=== PATIENT | female | born 1955 | race Caucasian/White ===

== ENCOUNTER 2019-09-14 15:12 | Emergency (ER) | payer OTHER ==
--- OUTSIDE RECORDS SUMMARY | 2019-09-14 15:20 | XMS REPORT | Continuity of Care Document ---
:1955 External Reference #:[id number] Author Name Julian Porter M.D. (transmitted by agent of provider Alcira Brown) Address [address] [place] [id number] Care Team Providers Name Role Phone Patricia Davalos M.D. 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 Onset: 08/19/2019 Social History Type Date Description Comments Sex Unknown Tobacco Use Start: Unknown Never Smoked Cigarettes Smoking Status Reviewed: 08/26/19 Never Smoked Cigarettes ETOH Use Currently consumes 1 drink a day alcohol Tobacco Use Start: Unknown Patient has never smoked Recreational Drug Use Never Used Drugs Exercise Type/Frequency Exercises regularly hiking, dance, weight lifting Allergies, Adverse Reactions, Alerts Description No Known Drug Allergies Medications Active Medications SIG Qnty Indications Ordering Date Provider Mirtazapine one by mouth 60tabs F33.9 Patricia Davalos MD 08/13/2019 7.5mg Tablets daily, at bedtime. may increase to 2 tabs after 2 weeks Levothyroxine Sodium 1 by mouth every 90tabs E03.9 Patricia Davalos MD 2018 other day, 75mcg Tablets alternate with 88mcg dose Premarin 0.5g per vagina 30gm N95.2 Patricia Davalos MD 08/13/2019 0.625mg/GM Cream at bedtime 2x/week Levothyroxine Sodium 1 by mouth every 90tabs Patricia Davalos MD other day to 88mcg Tablets alternate with 75 mcg. Immunizations Description No Information Available Vital Signs Date Vital Result Comment 08/26/2019 9:06am Height 63 inches 5'3" Heart Rate 58 /min BP Systolic 122 mmHg BP Diastolic 84 mmHg Respiratory Rate 12 /min Body Temperature 97.5 F Pain Level 2 08/19/2019 11:33am Height 63 inches 5'3" Weight 132.00 lb Heart Rate 64 /min BP Systolic 98 mmHg BP Diastolic 58 mmHg Respiratory Rate 16 /min Body Temperature 98.0 F Pain Level 0 BMI (Body Mass Index) 23.4 kg/m2 Results Description No Information Available Procedures Date Code Description Status 01/16/2018 [id number] Mammogram Completed Medical Devices Description No Information Available Encounters Type Date Location Provider Dx Diagnosis Office Visit 08/13/2019 [facility] Internal Patricia Davalos MD F33.9 Major depressive 4:00p Medicine - [facility] disorder, recurrent, unspecified M76.72 Peroneal tendinitis, left leg L20.9 Atopic dermatitis, unspecified M25.561 Pain in right knee E03.9 Hypothyroidism, unspecified 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 Assessments Date Code Description Provider 08/26/2019 S92.215A Nondisplaced fracture of cuboid bone of left Julian Porter M.D. foot, initial encounter for closed fracture 08/19/2019 S92.215A Nondisplaced fracture of cuboid bone of left Julian Porter M.D. foot, initial encounter for closed fracture 08/13/2019 F33.9 Major depressive disorder, recurrent, Patricia Davalos MD unspecified 08/13/2019 M76.72 Peroneal tendinitis, left leg Patricia Davalos MD 08/13/2019 L20.9 Atopic dermatitis, unspecified Patricia Davalos MD 08/13/2019 M25.561 Pain in right knee Patricia Davalos MD 08/13/2019 E03.9 Hypothyroidism, unspecified Patricia Davalos MD 08/13/2019 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 Patricia Davalos MD Plan of Treatment Future Appointment(s):09/26/2019 9:00 am - [facility] Julian Porter M.D.S92.215A Nondisplaced fracture of cuboid bone of left foot, initial encounter for closed fractureFollow up:As needed Functional Status Description No Information Available Mental Status Description No Information Available Referrals Refer to Reason for Referral Status Appt Date Julian Porter MD pt with chronic left ankle pain, MRI revealed Sent 08/19 peroneal tendinopathy [address] [place] [phone]
--- OUTSIDE RECORDS SUMMARY | 2019-09-14 15:20 | XMS REPORT | Summary of Care ---
:1955 Author Organization [facility] Address [address] [facility] [place] [address] Care Team Providers Name Role Phone Jacqueline Steve MD Primary Care Provider Reason for Visit Reason Comments Foot Problem c/o left foot pain, outer aspect. Has had fall prior, so unsure of injury. Derm Problem has dry skin, cracking, peeling. Approx 2 months Medication Check discuss Risdronate, effect on fractures. Discuss Synthroid. Follow Up discuss lipid disorder. Encounter Details Date Type Department Care Team Description 07/17/2019 Office Visit [place] [facility] Jacqueline Steve MD Stress fracture of left foot, initial encounter (Primary Dx); Medicine [address] [facility] Lipid disorder; [address] [place] [address] Eczema, unspecified type; [place] [address] Hypothyroidism; [phone] Insomnia, unspecified type Allergies No Known Allergiesdocumented as of this encounter (statuses as of 07/17/2019) Medications Medication Sig Dispensed Refills Start Date End Date Status naproxen (NAPROSYN) Take 1 Tab 20 Tab 0 01/29/2018 Active 500 MG Oral by mouth TabIndications: TWICE Acute bilateral low DAILY. With back pain without food sciatica cyclobenzaprine Take 1 Tab 42 Tab 0 01/29/2018 Active (FLEXERIL) 10 MG by mouth Oral TabIndications: THREE TIMES Acute bilateral low DAILY back pain without NEEDED for sciatica muscle spasm. levothyroxine Take 1 Tab 90 Tab 3 04/15/2019 Active (SYNTHROID) 88 MCG by mouth Oral TabIndications: BEFORE Hypothyroidism, BREAKFAST. unspecified type Risedronate Sodium Take 1 Tab 3 Tab 3 04/15/2019 Active 150 MG Oral by mouth TabIndications: EVERY Osteoporosis, THIRTY unspecified DAYS. osteoporosis type, unspecified pathological fracture presence levothyroxine Take 1 Tab 90 Tab 3 07/17/2019 Active (SYNTHROID) 75 MCG by mouth Oral TabIndications: EVERY OTHER Hypothyroidism DAY. clobetasol (CORMAX) Apply twice 15 g 1 07/17/2019 Active 0.05 % Apply daily externally Ointment clobetasol (CORMAX) Apply twice 15 g 1 07/17/2019 Discontinued 0.05 % Apply daily 9 externally OintmentIndications: Eczema, unspecified type levothyroxine Take 1 Tab 90 Tab 3 07/17/2019 Discontinued (SYNTHROID) 75 MCG by mouth 9 (Reorder) Oral TabIndications: EVERY OTHER Hypothyroidism DAY. documented as of this encounter (statuses as of 07/17/2019) Active Problems Problem Noted Date Lipid disorder 10/25/2018 Overview: LDL not ideal - framingham risk at age 64 is 5.6 % - patient declines lipid treatment at this tme ( no fam history coronary artery disease ) Chronic bilateral low back pain without sciatica 03/14/2017 Tinea versicolor 02/07/2017 Encounter for gynecological examination with abnormal finding 02/07/2017 Osteopenia 09/06/2007 Overview: Dxa 2006 Osteopenia of the spine/ Normal hip Frax data: 10 yr risk for major osteoporotic fracture - 30 %; hip fracture - 3 % (04/02) - Start fosamax - 04/02 - took 1 month and stopped Restart with actonel 03/05 Hypothyroidism 08/21/2007 Overview: Feels better lower in the range 04/02 Dysthymia 02/05/2006 Depression 11/19/2001 Graves disease 11/19/1986 documented as of this encounter (statuses as of 07/17/2019) Immunizations Name Administration Dates Next Due DTAP Vaccine 05/12/2004 Hepatitis A Vaccine-Adult 02/06/2012, 08/11/2011 Influenza (IM) Preservative Free 09/04/2018, 08/25/2014, 10/07/2013, 10/29/2012 Influenza Vaccine Whole 09/16/2009 TDAP Vaccine 02/22/2015 TYPHOID VACCINE 11/07/2016 YELLOW FEVER VACCINE 11/07/2016 ZOSTER (SHINGRIX) VACCINE 01/23/2019 documented as of this encounter Social History Tobacco Use Types Packs/Day Years Used Date Never Smoker Smokeless Tobacco: Never Used Alcohol Use Drinks/Week oz/Week Comments Yes 7 Standard drinks or equivalent 5.8 Sex Assigned at Date Recorded Not on file Job Start Date Occupation Industry Not on file Not on file Not on file Travel History Travel Start Travel End No recent travel history available. documented as of this encounter Last Filed Vital Signs Vital Sign Reading Time Taken Comments Blood Pressure 108/69 07/17/2019 9:12 AM EDT Pulse 68 07/17/2019 9:12 AM EDT Temperature - - Respiratory Rate - - Oxygen Saturation 98% 07/17/2019 9:12 AM EDT Inhaled Oxygen Concentration - - Weight 59.9 kg (132 lb) 07/17/2019 9:12 AM EDT Height 161.3 cm (5' 3.5") 07/17/2019 9:12 AM EDT Body Mass Index 23.02 07/17/2019 9:12 AM EDT documented in this encounter Patient Instructions Patient InstructionsJacqueline Steve MD - 07/17/2019 9:00 AM EDTStress sPatient Education Stress Fracture of the Metatarsal Bone Discharge Instructions About this topic You have 5 metatarsal bones in the middle of your foot. One leads up to each toe. Stress fractures are common injuries to these bones. Muscles most often cushion these bones and act like shock absorbers. When the muscles are tired or overused, some of the shock gets transferred to the bone. Tiny cracks can happen. Most of the time, these will heal. Sometimes, these tiny cracks can grow larger. They may turn into a full break that goes all the way through the bone. The most common places in the foot to have stress fractures are the second and third metatarsals. What care is needed at home? Ask your doctor what you need to do when you go home. Make sure you ask questions if you do notunderstand what the doctor says. This way you will know what you need to do. Rest your foot. Your doctor may have you wear a brace, cast, or walking boot to limit your movement. Avoid any activities that make your pain worse. Place an ice pack or a bag of frozen peas wrapped in a towel over the painful part. Never put ice right on the skin. Do not leave the ice on more than 10 to 15 minutes at a time. Prop your foot on pillows to help with swelling. Lightly wrap the foot with bandages to help lessen swelling. Use arch supports or shoe inserts if your doctor suggests you do this. Use crutches if your doctor suggests you do this. Do gentle exercises for stretching and for strengthening as your doctor or physical therapist suggests. Slowly add to the intensity and amount of exercise you do. What follow-up care is needed? Your doctor may ask you to make visits to the office to check on your progress. Be sure to keep these visits. Your doctor may send you to physical therapy (PT) . The PT will teach you exercises to get back your strength and motion. What drugs may be needed? The doctor may order drugs to: Help with pain and swelling Will physical activity be limited? You may need to rest your foot for a while. You should not do physical activity that makes your health problem worse. If you run, work out, or play sports, you may not be able to do those things until your health problem gets better. What problems could happen? Trouble healing Trouble moving the foot Trouble fitting into shoes Arthritis Chronic pain Foot deformity What can be done to prevent this health problem? Warm up slowly and stretch your muscles before you work out. Use good ways to train, such as slowly adding to how far you run. Do not work out if you are overly tired. Take extra care if working out in cold weather. Always wear proper equipment and footwear when running or playing sports. Replace old shoes often. Wear shoes with good support. Consider wearing arch supports if you have flat feet. If you are a runner, change your shoes after 350 to 500 miles. Avoid walking or running on uneven surfaces or hard surfaces like concrete. Try swimming, biking, or walking instead of running to lessen the impact on your feet. If you like to run, try cross training or alternating running with these other activities on different days. Stay active and work out to keep your muscles strong and flexible. Keep a healthy weight so there is not extra stress on your joints. Eat a healthy diet to keep your muscles healthy. Eat a diet rich in calcium and vitamin D to keep your bones strong. When do I need to call the doctor? Pain is worse You are having more problems walking You are not feeling better in 2 to 3 days or you are feeling worse. Teach Back: Helping You Understand The Teach Back Method helps you understand the information we are giving you. The idea is simple. After talking with the staff, tell them in your own words what you were just told. This helps to make sure the staff has covered each thing clearly. It also helps to explain things that may have been a bit confusing. Before going home, make sure you are able to do these: I can tell you about my fracture. I can tell you how I will care for my injured area. I can tell you what may help ease my pain. I can tell you what I will do if I have more pain or I am having more problems walking. Where can I learn more? [employer] https://orthoinfo.aaos.org/en/diseases--conditions/zfupjv-mwqjebwfu-fq-the-foot- and-ankle Last Reviewed Date 2018-07-18 Consumer Information Use and Disclaimer This information is not specific medical advice and does not replace information you receive from your health care provider. This is only a brief summary of general information. It does NOT include allinformation about conditions, illnesses, injuries, tests, procedures, treatments, therapies, discharge instructions or life-style choices that may apply to you. You must talk with your health care provider for complete information about your health and treatment options. This information should not beused to decide whether or not to accept your health care providers advice, instructions or recommendations. Only your health care provider has the knowledge and training to provide advice that isright for you. Copyright Copyright 2018 [employer] and its affiliates and/or licensors. All rights reserved. 2. Trial of levothyroxine 75 mcg and rediscuss ( treatment or depression appropriate / insomnia ?) 3. Stop actonel while has suspicion of stress fracture 4. Xray forstress fracture - if unrevealing ct scan - 5. Clobetasol ointment For the eczema ( Use occlusion at night ) documented in this encounter Progress Notes Jacqueline Steve MD - 07/17/2019 9:00 AM EDT NAME:Gretchen Grier 1955: 1955 ENC Date: 07/17/2019 CC: Chief Complaint Patient presents with Foot Problem c/o left foot pain, outer aspect. Has had fall prior, so unsure of injury. Derm Problem has dry skin, cracking, peeling. Approx 2 months Medication Check discuss Risdronate, effect on fractures. Discuss Synthroid. Follow Up discuss lipid disorder. Gretchen Grier is a 64-y.o. female with multiple issues 1. 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 Has been on actonel 3 years- Worried about use with question of stress fracture 3. Thyroid - Has insomnia- wonders if related- Has energy- Has been on 88 mcg for some time -TSH has been normal n the low part of the range wondering if on the lower dose will feel better- 4. Lipids revieweed and calculated a framingham risk 4. Eczema - Right 5th finger - reoccuring - Has had in the winter Was prescribed cream by Dr Painting last yr- Current Outpatient Medications Medication Sig clobetasol (CORMAX) 0.05 % Apply externally Ointment Apply twice daily cyclobenzaprine (FLEXERIL) 10 MG Oral Tab Take 1 Tab by mouth THREE TIMES DAILY NEEDED formuscle spasm. levothyroxine (SYNTHROID) 75 MCG Oral Tab Take 1 Tab by mouth EVERY OTHER DAY. levothyroxine (SYNTHROID) 88 MCG Oral Tab Take 1 Tab by mouth BEFORE BREAKFAST. naproxen (NAPROSYN) 500 MG Oral Tab Take 1 Tab by mouth TWICE DAILY. With food Risedronate Sodium 150 MG Oral Tab Take 1 Tab by mouth EVERY THIRTY DAYS. No current facility-administered medications for this visit. Patient Active Problem List Diagnosis Date Noted Lipid disorder 10/25/2018 LDL not ideal - framingham risk at age 64 is 5.6 % - patient declines lipid treatment at this tme ( no fam history coronary artery disease ) Chronic bilateral low back pain without sciatica 03/14/2017 Tinea versicolor 02/07/2017 Encounter for gynecological examination with abnormal finding 02/07/2017 Osteopenia 09/06/2007 Dxa 2006 Osteopenia of the spine/ Normal hip Frax data: 10 yr risk for major osteoporotic fracture - 30 %; hip fracture -3 % (04/02) - Start fosamax - 04/02 - took 1 month and stopped Restart with actonel 03/05 Hypothyroidism 08/21/2007 Feels better lower in the range 04/02 Dysthymia 02/05/2006 Depression 11/19/2001 Graves disease 11/19/1986 Family History Problem Relation Age of Onset Arthritis Mother Cancer Mother lymphoma Cancer Father liver Breast Cancer Maternal Aunt Psychiatry Brother Genetic Child No cardiopulmonary symptoms No upper or lower GI complaints No urinary tract symptoms. No bruising/ bleeding. No neurological complaints . No insomnia.+ . Social History Tobacco Use Smoking status: Never Smoker Smokeless tobacco: Never Used Substance Use Topics Alcohol use: Yes Alcohol/week: 5.8 standard drinks Types: 7 Standard drinks or equivalent per week Drug use: No OBJECTIVE: BP 108/69 | Pulse 68 | Ht 5' 3.5" (1.613 m) | Wt 132 lb (59.9 kg) | LMP 05/2015 | SpO2 98% | BMI 23.02 kg/m . Right 5th finger- Diffuse ecxamea on one finger with cracks Left 5th metatarsus - No bruise- Localized pain laterally - A/P ICD-9-CM ICD-10-CM 1. Stress fracture of left foot, initial encounter- high suspicion - Start with plaini xray - if negative proceed to ct scan 733.95 M84.375A XR FOOT MIN 3 VIEWS LEFT (STANDARD) 2. Lipid disorder- LDL high but framingham risk low - not interested in medication 272.9 E78.9 3. Eczema, unspecified type 692.9 L30.9 clobetasol (CORMAX) 0.05 % Apply externally Ointment 4. Hypothyroidism- adquately treated but wishes to try lwoer dose- 244.9 E03.9 THYROID STIMULATINGHORMONE levothyroxine (SYNTHROID) 75 MCG Oral Tab 5. Insomnia, unspecified type 780.52 G47.00 Patient Instructions Stress sPatient Education Stress Fracture of the Metatarsal Bone Discharge Instructions About this topic You have 5 metatarsal bones in the middle of your foot. One leads up to each toe. Stress fractures are common injuries to these bones. Muscles most often cushion these bones and act like shock absorbers. When the muscles are tired or overused, some of the shock gets transferred to the bone. Tiny cracks can happen. Most of the time, these will heal. Sometimes, these tiny cracks can grow larger. They may turn into a full break that goes all the way through the bone. The most common places in the foot to have stress fractures are the second and third metatarsals. What care is needed at home? Ask your doctor what you need to do when you go home. Make sure you ask questions if you do notunderstand what the doctor says. This way you will know what you need to do. Rest your foot. Your doctor may have you wear a brace, cast, or walking boot to limit your movement. Avoid any activities that make your pain worse. Place an ice pack or a bag of frozen peas wrapped in a towel over the painful part. Never put ice right on the skin. Do not leave the ice on more than 10 to 15 minutes at a time. Prop your foot on pillows to help with swelling. Lightly wrap the foot with bandages to help lessen swelling. Use arch supports or shoe inserts if your doctor suggests you do this. Use crutches if your doctor suggests you do this. Do gentle exercises for stretching and for strengthening as your doctor or physical therapist suggests. Slowly add to the intensity and amount of exercise you do. What follow-up care is needed? Your doctor may ask you to make visits to the office to check on your progress. Be sure to keep these visits. Your doctor may send you to physical therapy (PT) . The PT will teach you exercises to get back your strength and motion. What drugs may be needed? The doctor may order drugs to: Help with pain and swelling Will physical activity be limited? You may need to rest your foot for a while. You should not do physical activity that makes your health problem worse. If you run, work out, or play sports, you may not be able to do those things until your health problem gets better. What problems could happen? Trouble healing Trouble moving the foot Trouble fitting into shoes Arthritis Chronic pain Foot deformity What can be done to prevent this health problem? Warm up slowly and stretch your muscles before you work out. Use good ways to train, such as slowly adding to how far you run. Do not work out if you are overly tired. Take extra care if working out in cold weather. Always wear proper equipment and footwear when running or playing sports. Replace old shoes often. Wear shoes with good support. Consider wearing arch supports if you have flat feet. If you are a runner, change your shoes after 350 to 500 miles. Avoid walking or running on uneven surfaces or hard surfaces like concrete. Try swimming, biking, or walking instead of running to lessen the impact on your feet. If you like to run, try cross training or alternating running with these other activities on different days. Stay active and work out to keep your muscles strong and flexible. Keep a healthy weight so there is not extra stress on your joints. Eat a healthy diet to keep your muscles healthy. Eat a diet rich in calcium and vitamin D to keep your bones strong. When do I need to call the doctor? Pain is worse You are having more problems walking You are not feeling better in 2 to 3 days or you are feeling worse. Teach Back: Helping You Understand The Teach Back Method helps you understand the information we are giving you. The idea is simple. After talking with the staff, tell them in your own words what you were just told. This helps to make sure the staff has covered each thing clearly. It also helps to explain things that may have been a bit confusing. Before going home, make sure you are able to do these: I can tell you about my fracture. I can tell you how I will care for my injured area. I can tell you what may help ease my pain. I can tell you what I will do if I have more pain or I am having more problems walking. Where can I learn more? [employer] https://orthoinfo.aaos.org/en/diseases--conditions/wdtfga-euvfcntbl-bv-the-foot- and-ankle Last Reviewed Date 2018-07-18 Consumer Information Use and Disclaimer This information is not specific medical advice and does not replace information you receive from your health care provider. This is only a brief summary of general information. It does NOT include allinformation about conditions, illnesses, injuries, tests, procedures, treatments, therapies, discharge instructions or life-style choices that may apply to you. You must talk with your health care provider for complete information about your health and treatment options. This information should not beused to decide whether or not to accept your health care providers advice, instructions or recommendations. Only your health care provider has the knowledge and training to provide advice that isright for you. Copyright Copyright 2018 [employer] and its affiliates and/or licensors. All rights reserved. 2. Trial of levothyroxine 75 mcg and rediscuss ( treatment or depression appropriate / insomnia ?) 3. Stop actonel while has suspicion of stress fracture 4. Xray forstress fracture - if unrevealing ct scan - 5. Clobetasol ointment For the eczema ( Use occlusion at night ) AUTHOR: Jacqueline Steve MD 09:53 07/17/2019 documented in this encounter Plan of Treatment Date Type Specialty Care Team Description 08/22/2019 Office Visit Internal Medicine Jacqueline Steve MD [address] [place] [address] [phone] Name Type Priority Associated Diagnoses Date/Time XR FOOT MIN 3 VIEWS Imaging Routine Stress fracture of left 07/17/2019 9: 56 AM EDT LEFT (STANDARD) foot, initial encounter Name Type Priority Associated Diagnoses Order Schedule XR FOOT MIN 3 VIEWS Imaging Routine Stress fracture of left Expected: LEFT (STANDARD) foot, initial encounter 07/17/2019, Expires: 07/16/2020 THYROID STIMULATING Lab Routine Hypothyroidism Expected: HORMONE 07/17/2019 (Approximate), Expires: 01/13/2020 Health Maintenance Due Date Last Done Comments PAP SMEAR 02/07/2018 02/07/2017, 02/07/2017, 02/22/2015, Additional history exists ZOSTER IMMUNIZATION SERIES 03/20/2019 01/23/2019 (2 of 2) INFLUENZA VACCINE (#1) 2019 09/04/2018, 08/14/2018, 08/25/2014, Additional history exists DEPRESSION SCREENING 10/25/2019 10/25/2018 COLONOSCOPY SCREENING 03/25/2020 03/25/2015, 09/28/2009 (Previously completed) LIPID DISORDER SCREENING 10/30/2023 10/30/2018, 12/24/2017, 02/01/2017, Additional history exists HPV IMMUNIZATION SERIES Aged Out No longer eligible based on patient's age to complete this topic MENINGOCOCCAL VACCINE IMM Aged Out No longer eligible based on patient's age to complete this topic PNEUMOCOCCAL 0-64 YRS Aged Out No longer eligible based on patient's age to complete this topic documented as of this encounter Goals Goal Patient Goal Associated Recent Patient-Stated? Author Type Problems Progress Depression Depression No hieu Steve (PHQ-9) MD Jacqueline total score < 5 Note: This is an individualized treatment (depression) goal for Gretchen Grier: Displayed above is your goal for a depression screening (PHQ-9) score that would indicate good control of your depression. Keep a regular sleep schedule Lifestyle No Jacqueline Steve MD Note: This is an individualized lifestyle goal for Gretchen Grier: Please maintain a regular sleep schedule. This may help with some symptoms of depression. Take all prescribed medications as directed Self-management Jacqueline Ramirez MD Note: This is an individualized self-management goal for Gretchen Grier: Please take all prescribed medications as directed. 1. Do not skip doses. If you cannot afford your medications, talk with your doctor. 2. Use a pill reminder system such as a pill box if needed. Your pharmacist can help you with this. 3. Contact your Pharmacy 5 days before your medication runs out. If you cannot take your medications for any reasons, talk with your doctor. 4. Please bring all of your medication bottles and inhalers (or a list of all your medications/inhalers) with you to every visit. Potential barriers to meeting all of your care plan goals will continue to be addressed on an ongoing basis. documented as of this encounter Results Not on filedocumented in this encounter Visit Diagnoses Diagnosis Stress fracture of left foot, initial encounter - Primary Lipid disorder Unspecified disorder of lipoid metabolism Eczema, unspecified type Hypothyroidism Unspecified hypothyroidism Insomnia, unspecified type documented in this encounter Insurance Payer Benefit Plan / Subscriber ID Effective Dates Phone Address Type Group [employer] COMMERCIAL AETNA xxxxxxxxxx Effective for all A[employer] dates Guarantor Name Account Type Relation to Date of Phone Billing Patient Address Gretchen Grier Personal/Family 1955 [address] (Home) [place], [place] [phone] [id number] (Work) documented as of this encounter Advance Directives Type Date Recorded Patient [employer] Explanation Advance Directives 03/29/2015 9:36 AM Health Care Proxy
--- OUTSIDE RECORDS SUMMARY | 2019-09-14 15:20 | XMS REPORT | Continuity of Care Document ---
:1955 External Reference #:[id number] Author Name Julian Porter M.D. (transmitted by agent of provider Dionna Portillo) Address [address] [place] [id number] Care Team Providers Name Role Phone Patricia Davalos M.D. - Family Medicine Care Team Information Chief Nurse Problems Active Problems Provider Date Closed fracture of cuboid bone of foot Julian Porter M.D. Onset: 08/19/2019 Social History Type Date Description Comments Sex Unknown Tobacco Use Start: Unknown Never Smoked Cigarettes Smoking Status Reviewed: 08/19/19 Never Smoked Cigarettes ETOH Use Currently consumes [...] 2x/week Levothyroxine Sodium 1 by mouth every Unknown day 88mcg Tablets Immunizations Description No Information Available Vital Signs Date Vital Result Comment 08/19/2019 11:33am Height 63 inches 5'3" Weight 132.00 lb Heart Rate 64 /min BP Systolic 98 mmHg BP Diastolic 58 mmHg Respiratory Rate 16 /min Body Temperature 98.0 F Pain Level 0 BMI (Body Mass Index) 23.4 kg/m2 08/13/2019 4:08pm Height 63 inches 5'3" Weight 133.00 lb Heart Rate 69 /min BP Systolic Sitting 110 mmHg Rue reg cuff BP Diastolic Sitting 73 mmHg Rue reg cuff O2 % BldC Oximetry 98 % BMI (Body Mass Index) 23.6 kg/m2 Results Description No Information Available Procedures Date Code Description Status 01/16/2018 [id number] Mammogram Completed Medical Devices Description No Information Available Encounters Type Date Location Provider Dx Diagnosis Office Visit 08/13/2019 [facility] [address] Internal Patricia Davalos MD F33.9 Major depressive 4:00p Medicine - [facility] disorder, recurrent, unspecified M76.72 Peroneal tendinitis, left leg L20.9 Atopic dermatitis, unspecified M25.561 Pain in right knee E03.9 Hypothyroidism, unspecified 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 Assessments Date Code Description Provider 08/19/2019 S92.215A Nondisplaced fracture of cuboid bone [...] 9:00 am - Patricia Davalos MD at [facility] [address] Internal Medicine - [facility]08/26/2019 11:30 am - Haley Ramirez MD at [facility] [address] [id number]/01 /2019 - Julian Porter M.D.S92.215A Nondisplaced fracture of cuboid bone of left foot, initial encounter for closed fractureNew Xrays:Dexa Bone Study, Ordered: 10/01/19Follow up:Follow up: After bone density Functional Status Description No Information Available Mental Status Description No Information Available Referrals Refer to Reason for Referral Status Appt Date Julian Porter MD pt with chronic left ankle pain, MRI revealed Sent 08/19 peroneal tendinopathy [address] [place], [place] [id number] [phone]
[2019-09-14 15:58] LABS: Influenza A Molecular NEGATIVE (Negative); Influenza B Molecular NEGATIVE (Negative)
[2019-09-14] MEDS ORDERED: Acetaminophen TAB* 325 MG PO ONE (16:16)
--- NOTE | 2019-09-14 16:56 | UC ---
Respiratory Complaint HPI - HPI Summary HPI Summary: The patient is a 64 yo female that has been ill for 1 1/2 weeks Started as a typical cold Past three days with productive cough/fever and rigors Some RUQ abd pain (mild) no vomiting or diarrhea she has a bitemporal HOSKINS no stiff neck no UTI symptoms no SOB Has been weak and has had three falls in the past few days - History of Current Complaint Chief Complaint: UCGeneralIllness Stated Complaint: DIZZY , WEEKNESS, TIRED Time Seen by Provider: 09/14/19 15:35 Hx Obtained From: Patient Onset/Duration: Gradual Onset, Lasting Days Timing: Constant Severity Initially: Mild Severity Currently: Moderate Pain Intensity: 5 Pain Scale Used: 0-10 Numeric Character: Cough: Productive Aggravating Factors: Nothing Alleviating Factors: Nothing Associated Signs And Symptoms: Positive: Fever, Chills, Nasal Congestion - Allergies/Home Medications Allergies/Adverse Reactions: Allergies Allergy/AdvReac Type Severity Reaction Status Date / Time No Known Allergies Allergy Verified 09/14/19 15:36 Home Medications: Home Medications Conjugated Estrogens VAG CM* [Premarin VAG CREAM*] 1 applic .SEE ORDER DAILY [History Confirmed 09/14/19] Levothyroxine TAB* [Synthroid TAB*] 88 mcg PO 0800 09/14/19 [History Confirmed 09/14/19] Mirtazapine 7.5 mg PO BEDTIME 09/14/19 [History Confirmed 09/14/19] PMH/Surg Hx/FS Hx/Imm Hx Previously Healthy: Yes - Surgical History Surgical History: Yes Surgery Procedure, Year, and Place: c section - Social History Alcohol Use: None Substance Use Type: None Smoking Status (MU): Never Smoked Tobacco Review of Systems All Other Systems Reviewed And Are Negative: Yes Constitutional: Positive: Fever, Chills, Fatigue Skin: Positive: Negative Eyes: Positive: Negative ENT: Positive: Sinus Congestion. Negative: Epistaxis, Dental Pain, Sore Throat , Ear Ache, Nasal Discharge, Sinus Pain/Tenderness Respiratory: Positive: Cough Cardiovascular: Positive: Negative Gastrointestinal: Positive: Abdominal Pain - sl RUQ pain Genitourinary: Positive: Negative Motor: Positive: Negative Neurovascular: Positive: Negative Musculoskeletal: Positive: Myalgia Neurological: Positive: Headache Psychological: Positive: Negative Physical Exam Triage Information Reviewed: Yes Appearance: No Pain Distress, Ill-Appearing Vital Signs: Initial Vital Signs Temp 102.6 F 09/14/19 15:37 Pulse 85 09/14/19 15:37 Resp 18 09/14/19 15:37 BP 115/60 09/14/19 15:37 Pulse Ox 95 09/14/19 15:37 Vital Signs Reviewed: Yes Eyes: Positive: Conjunctiva Clear ENT: Positive: Normal ENT inspection, Pharyngeal erythema, Nasal congestion. Negative: Nasal drainage, Tonsillar swelling, Tonsillar exudate, Trismus, Muffled voice, Hoarse voice Neck: Positive: Supple Respiratory: Positive: Lungs clear, Normal breath sounds, No respiratory distress, No accessory muscle use Cardiovascular: Positive: RRR Abdomen Description: Positive: Nontender, No Organomegaly, Soft Bowel Sounds: Positive: Present Musculoskeletal: Positive: ROM Intact, No Edema Neurological: Positive: Fatigued Psychological Exam: Normal Skin Exam: Normal Diagnostics - Laboratory Lab Results: UA ++ protein, ++ blood influenza (-) - Radiology No standard instances Radiology Interpretation Completed By: Radiologist Summary of Radiographic Findings: CXR -neg Respiratory Course/Dx - Course Course Of Treatment: I have tried to encourage the patient to go to the ER for further evaluation to rule out sepsis/serious infection. I explained our limitations here and suggested EMS transfer She has refused EMS transfer but states she will go by private vehicle I informed her that I felt that this should be done today and any delays could cause serious complications - Differential Dx/Diagnosis Provider Diagnosis: Fever Discharge ED - Sign-Out/Discharge Documenting (check all that apply): Patient Departure All imaging exams completed and their final reports reviewed: No Studies - Discharge Plan Condition: Guarded Disposition: HOME-RECOMMEND TO ED Referrals: Patricia Davalos MD [Primary Care Provider] - Additional Instructions: I suggest you go to the ER for evaluation of your fever You need to be assessed there to make sure you are not septic Sepsis is due to an overwhelming infection and can lead to organ failure and We check a flu test here (-) CXR (-) Your urine did not point to an infection - Billing Disposition and Condition Condition: GUARDED Disposition: Home-Recommend to ED
[2019-09-14 18:16] VITALS: BP 104/49
== END 2019-09-14 17:18 | disposition home health service (06) ==
LOC: UCEAST 15:12
DX: R50.9 Fever, unspecified (principal); R10.11 Right upper quadrant pain; R05 Cough; R09.81 Nasal congestion; R68.83 Chills (without fever); R53.83 Other fatigue; M79.10 Myalgia, unspecified site; R51 Headache
CPT/HCPCS: 71046; 81003; 93005; 99212; A9270-GY; G0463

== ENCOUNTER 2019-09-14 17:26 | Emergency (ER) | payer OTHER ==
[2019-09-14 18:44] LABS: ABS Lymphocytes 0.3 10^3/ul (1.0-4.8); ABS Monocytes 0.2 10^3/ul (0-0.8); ABS Neutrophils 3.1 10^3/ul (1.5-7.7); Hematocrit 36 % (35-47); Hemoglobin 12.5 g/dL (12.0-16.0); Lymphocyte % 9.4 %; Mean Corpuscular HGB Conc 34 g/dL (31-36); Mean Corpuscular Hemoglobin 32 pg (27-31); Mean Corpuscular Volume 94 fL (80-97); Nucleated Red Blood Cells % 0.1; Platelet Count 123 10^3/uL (150-450); Red Blood Count 3.86 10^6 /uL (3.70-4.87); Red Cell Distribution Width 13 % (10-15); White Blood Count 3.6 10^3/uL (3.5-10.8)
[2019-09-14 18:52] LABS: Activated Partial Thrombo Time 33.6 seconds (26.0-38.0); INR 1.08 (0.82-1.09)
[2019-09-14 19:01] LABS: Albumin 3.9 g/dL (3.2-5.2); Albumin/Globulin Ratio 1.3 (1-3); BUN/Creatinine Ratio 15.5 (8-20); Calcium 8.6 mg/dL (8.6-10.3); EGFR African American 56.9 (>60); Potassium 3.7 mmol/L (3.5-5.0); Total Bilirubin 0.4 mg/dL (0.2-1.0); Total Protein 6.9 g/dL (6.4-8.9)
[2019-09-14 19:02] LABS: Troponin I 0.02 ng/mL (<0.04)
--- NOTE | 2019-09-14 23:10 | ED ---
Complex/Multi-Sys Presentation - HPI Summary HPI Summary: Pt is a 64 y/o F presenting to the ED with a chief complaint of multiple symptoms. About 1 week ago, she had a regular cold. The cold symptoms subsided but she now currently feels slow and has developed many other, seemingly unrelated sx. She reports fatigue, fever, highest of 103 at [facility], headache, nausea, decreased oral intake, cough, photophobia, lightheadedness, and a fall this morning. She fell this morning a couple of minutes after getting out of bed and letting the dogs out, and she experienced extreme dizziness yesterday as well. She denies abd pain, vomiting, diarrhea, CP, SOB, tingling, numbness, weakness, slurred speech, and dysuria. She last received Tylenol at 1600 today, and was sent here for bloodwork and further workup. - History Of Current Complaint Chief Complaint: EDAbdPain Time Seen by Provider: 09/14/19 22:52 Hx Obtained From: Patient Onset/Duration: Gradual Onset, Lasting Days, Still Present Timing: Constant, Days Severity Currently: Mild Severity Initially: Mild Location: Negative Associated Signs And Symptoms: Positive: Dizziness, Headache, Nausea, Fever. Negative: SOB, Chest Pain, Vomiting, Diarrhea, Abdominal Pain, Dysuria - Allergies/Home Medications Allergies/Adverse Reactions: Allergies Allergy/AdvReac Type Severity Reaction Status Date / Time No Known Allergies Allergy Verified 09/14/19 15:36 PMH/Surg Hx/FS Hx/Imm Hx Previously Healthy: Yes Endocrine/Hematology History: Reports: Hx Thyroid Disease Musculoskeletal History: Denies: Hx Osteoporosis - Surgical History Surgery Procedure, Year, and Place: c section Infectious Disease History: No Infectious Disease History: Denies: Traveled Outside the [place] in Last 30 Days - Family History Known Family History: Negative: Diabetes - Social History Alcohol Use: None Hx Substance Use: No Substance Use Type: Reports: None Hx Tobacco Use: No Smoking Status (MU): Never Smoked Tobacco Review of Systems - ROS Summary Review of Systems Summary: Home Medications Medication Instructions Recorded Confirmed Type Conjugated Estrogens VAG CM* 1 applic .SEE ORDER DAILY 09/14/19 09/14/19 History [Premarin VAG CREAM*] Levothyroxine TAB* [Synthroid TAB*] 88 mcg PO 0800 09/14/19 09/14/19 History Mirtazapine 7.5 mg PO BEDTIME 09/14/19 09/14/19 History Positive: Fever, Fatigue, Other - decreased oral intake Positive: Photophobia Negative: Chest Pain Positive: Cough. Negative: Shortness Of Breath Positive: Nausea. Negative: Abdominal Pain, Vomiting, Diarrhea Negative: dysuria Neurological: Other - lightheadedness Positive: Headache. Negative: Weakness, Paresthesia, Numbness, Slurred Speech All Other Systems Reviewed And Are Negative: Yes Physical Exam - Summary Physical Exam Summary: General: Well-developed, Well-nourished female. No acute distress. HEENT: Normocephalic, Atraumatic. Eyes: Conjuctiva normal, PERRL. Ears: TMs within normal limits. Nares: (-) discharge, (-) erythema. Oropharynx: Clear, mucous membranes moist, (-) exudates. Neck: Soft, FROM, (-) lymphadenopathy, (-) thyromegaly, (-) JVD. Cardiovascular: Normal sinus rhythm, (-) murmur. Lungs: Clear to auscultation bilaterally (-) wheezes, (-) rales, (-) rhonchi. Abdomen: Soft, non-tender, non-distended, (-) organomegaly, normal bowel sounds. Back: (-) CVA tenderness Extremities: No edema. Skin: Warm, dry, (-) rash. Neuro: Alert and oriented x3, no focal deficits. Psychiatric: Mood normal, affect normal. Triage Information Reviewed: Yes Vital Signs On Initial Exam: Initial Vitals Temp Pulse Resp BP Pulse Ox 99.0 F 82 16 91/57 98 09/14/19 17:46 09/14/19 17:46 09/14/19 17:46 09/14/19 17:46 09/14/19 17:46 Vital Signs Reviewed: Yes Procedures - Sedation Patient Received Moderate/Deep Sedation with Procedure: No Diagnostics - Vital Signs Vital Signs Temp Pulse Resp BP Pulse Ox 09/14/19 22:33 64 100/63 96 09/14/19 19:41 99 F 62 15 91/56 97 09/14/19 17:46 99.0 F 82 16 91/57 98 - Laboratory Lab Results: Lab Results 09/14/19 09/14/19 09/14/19 Range/Units 18:32 18:32 18:32 WBC 3.6 (3.5-10.8) 10^3/uL RBC 3.86 (3.70-4.87) 10^6 /uL Hgb 12.5 (12.0-16.0) g/dL Hct 36 (35-47) % MCV 94 (80-97) fL MCH 32 H (27-31) pg MCHC 34 (31-36) g/dL RDW 13 (10-15) % Plt Count 123 L (150-450) 10^3/uL MPV 9.0 (7.4-10.4) fL Neut % (Auto) 85.1 % Lymph % (Auto) 9.4 % Adams % (Auto) 5.2 % Eos % (Auto) 0.0 % Baso % (Auto) 0.3 % Absolute Neuts (auto) 3.1 (1.5-7.7) 10^3/ul Absolute Lymphs (auto) 0.3 L (1.0-4.8) 10^3/ul Absolute Monos (auto) 0.2 (0-0.8) 10^3/ul Absolute Eos (auto) 0.0 (0-0.6) 10^3/ul Absolute Basos (auto) 0.0 (0-0.2) 10^3/ul Absolute Nucleated RBC 0.0 10^3/ul Nucleated RBC % 0.1 INR (Anticoag Therapy) 1.08 (0.82-1.09) APTT 33.6 (26.0-38.0) seconds Sodium 130 L (135-145) mmol/L Potassium 3.7 (3.5-5.0) mmol/L Chloride 98 L (101-111) mmol/L Carbon Dioxide 23 (22-32) mmol/L Anion Gap 9 (2-11) mmol/L BUN 18 (6-24) mg/dL Creatinine 1.16 H (0.51-0.95) mg/dL Est GFR ( Amer) 56.9 (>60) Est GFR (Non-Af Amer) 47.0 (>60) BUN/Creatinine Ratio 15.5 (8-20) Glucose 121 H (70-100) mg/dL Lactic Acid (0.5-2.0) mmol/L Calcium 8.6 (8.6-10.3) mg/dL Total Bilirubin 0.40 (0.2-1.0) mg/dL AST 42 H (13-39) U/L ALT 37 (7-52) U/L Alkaline Phosphatase 75 (34-104) U/L Troponin I 0.02 (<0.04) ng/mL Total Protein 6.9 (6.4-8.9) g/dL Albumin 3.9 (3.2-5.2) g/dL Globulin 3.0 (2-4) g/dL Albumin/Globulin Ratio 1.3 (1-3) 09/14/19 Range/Units 18:32 WBC (3.5-10.8) 10^3/uL RBC (3.70-4.87) 10^6 /uL Hgb (12.0-16.0) g/dL Hct (35-47) % MCV (80-97) fL MCH (27-31) pg MCHC (31-36) g/dL RDW (10-15) % Plt Count (150-450) 10^3/uL MPV (7.4-10.4) fL Neut % (Auto) % Lymph % (Auto) % Adams % (Auto) % Eos % (Auto) % Baso % (Auto) % Absolute Neuts (auto) (1.5-7.7) 10^3/ul Absolute Lymphs (auto) (1.0-4.8) 10^3/ul Absolute Monos (auto) (0-0.8) 10^3/ul Absolute Eos (auto) (0-0.6) 10^3/ul Absolute Basos (auto) (0-0.2) 10^3/ul Absolute Nucleated RBC 10^3/ul Nucleated RBC % INR (Anticoag Therapy) (0.82-1.09) APTT (26.0-38.0) seconds Sodium (135-145) mmol/L Potassium (3.5-5.0) mmol/L Chloride (101-111) mmol/L Carbon Dioxide (22-32) mmol/L Anion Gap (2-11) mmol/L BUN (6-24) mg/dL Creatinine (0.51-0.95) mg/dL Est GFR ( Amer) (>60) Est GFR (Non-Af Amer) (>60) BUN/Creatinine Ratio (8-20) Glucose (70-100) mg/dL Lactic Acid 0.5 (0.5-2.0) mmol/L Calcium (8.6-10.3) mg/dL Total Bilirubin (0.2-1.0) mg/dL AST (13-39) U/L ALT (7-52) U/L Alkaline Phosphatase (34-104) U/L Troponin I (<0.04) ng/mL Total Protein (6.4-8.9) g/dL Albumin (3.2-5.2) g/dL Globulin (2-4) g/dL Albumin/Globulin Ratio (1-3) Result Diagrams: 09/14/19 18:32 09/14/19 18:32 Lab Statement: Any lab studies that have been ordered have been reviewed, and results considered in the medical decision making process. Re-Evaluation - Re-Evaluation 1st re-eval Re-Evaluation Time: 00:18 Change: Unchanged Comment: I have discussed results with the patient and her sx have resolved. Discussed symptoms that warrant immediate return to ED. Complex Multi-Symp Course/Dx Course Of Treatment: Pt is a 64 y/o F presenting to the ED with a chief complaint of multiple symptoms. She reports fatigue, fever, highest of 103 at [facility], headache, nausea, decreased oral intake, cough, photophobia, lightheadedness, and a fall this morning. She fell this morning a couple of minutes after getting out of bed and letting the dogs out, and she experienced extreme dizziness yesterday as well. She denies abd pain, vomiting, diarrhea, CP , SOB, tingling, numbness, weakness, slurred speech, and dysuria. Pt's physical exam is nml. Pts lab results show plt count of 123, Sodium of 130, Chloride of 98, Creatinine of 1.16, and AST of 42. In the ED course, pt received fluids and Reglan. Pt will be d/c'ed with a dx of influenza-like illness. I have discussed results with the patient and her sx have resolved. Discussed symptoms that warrant immediate return to ED. - Diagnoses Provider Diagnoses: Influenza-like illness Discharge ED - Sign-Out/Discharge Documenting (check all that apply): Patient Departure - Discharge Plan Condition: Stable Disposition: HOME Patient Education Materials: Viral Syndrome (ED) Referrals: Patricia Davalos MD [Primary Care Provider] - Additional Instructions: Please follow up with your primary care physician within three days. Please return to ED for any new or worsening symptoms. Please drink plenty of fluids, take Tylenol and Ibuprofen for your fever/pain, and rest as much as possible. - Attestation Statements Document Initiated by Scribe: Yes Documenting Scribe: Zarina Santacruz Provider For Whom Scribe is Documenting (Include Credential): Lolis Acevedo MD. Scribe Attestation: Zarina Santiago, scribed for Lolis Acevedo MD. on 09/15/19 at 0017. Status of Scribe Document: Ready
[2019-09-14] MEDS ORDERED: NS 0.9% 1000 ML** 1,000 ML IV ONE (23:30)
[2019-09-14] MEDS ORDERED: Metoclopramide IV* 5 MG/ML 2 ML VIAL IV ONE (23:31)
[2019-09-15 00:06] LABS: TSH (Thyroid Stimulating Horm) 0.45 mcIU/mL (0.34-5.60)
[2019-09-15 00:43] VITALS: BP 104/64
== END 2019-09-15 00:49 | disposition home or self-care (01) ==
LOC: ED 17:26
DX: R53.83 Other fatigue (principal); R50.9 Fever, unspecified; R51 Headache; R11.0 Nausea; R05 Cough; H53.149 Visual discomfort, unspecified; R42 Dizziness and giddiness; E07.9 Disorder of thyroid, unspecified
CPT/HCPCS: 36415; 80053; 83605; 84443; 84484; 85025; 85610; 85730; 87040; 96361; 96374; 99283; J2765

== ENCOUNTER 2019-09-18 15:52 | Inpatient (IN) | payer OTHER ==
--- OUTSIDE RECORDS SUMMARY | 2019-09-18 16:09 | XMS REPORT | Continuity of Care Document ---
:1955 External Reference #:[id number] Author Name RAQUEL Marshall (transmitted by agent of provider Jody Allan) Address [address] [place] [id number] Care Team Providers Name Role Phone Patricia Davalos M.D. - Family Medicine Care Team Information Sql Bi Developer Problems Active Problems Provider Date Closed fracture of cuboid bone of foot Julian Porter M.D. Onset: 08/19/2019 Social History Type Date Description Comments Sex Unknown Tobacco Use Start: Unknown Never Smoked Cigarettes Smoking Status Reviewed: 09/17/19 Never Smoked Cigarettes ETOH Use Currently consumes [...] increase to 2 tabs after 2 weeks Premarin 0.5g per vagina 30gm N95.2 Patricia Davalos MD 08/13/2019 0.625mg/GM Cream at bedtime 2x/week Levothyroxine Sodium 1 by mouth every 90tabs Patricia Davalos MD other day to 88mcg Tablets alternate with 75 mcg. History Medications Levothyroxine Sodium 1 by mouth every 90tabs E03.9 Patricia Davalos MD 2018 - other day, 09/17/2019 75mcg Tablets alternate with 88mcg dose Immunizations Description No Information Available Vital Signs Date Vital Result Comment 09/17/2019 1:59pm Height 63 inches 5'3" Weight 135.00 lb Heart Rate 76 /min BP Systolic Sitting 85 mmHg BP Diastolic Sitting 68 mmHg Body Temperature 100.1 F BMI (Body Mass Index) 23.9 kg/m2 08/26/2019 9:06am Height 63 inches 5'3" Heart Rate 58 /min BP Systolic 122 mmHg BP Diastolic 84 mmHg Respiratory Rate 12 /min Body Temperature 97.5 F Pain Level 2 Results Test Acquired Date Facility Test Result H/L Range Note CBC Auto 09/14/2019 [facility] White Blood 3.6 10^3/uL Normal 3.5-10.[address] [place] [address] [phone] Red Blood Count 3.86 10^6/uL Normal 3.70-4.87 Hemoglobin 12.5 g/dL Normal 12.0-16.0 Hematocrit 36 % Normal 35-47 Mean Corpuscular Volume 94 fL Normal 80-97 Mean Corpuscular Hemoglobin 32 pg High 27-31 Mean Corpuscular HGB Conc 34 g/dL Normal 31-36 Red Cell Distribution Width 13 % Normal 10-15 Platelet Count 123 10^3/uL Low 150-450 Mean Platelet Volume 9.0 fL Normal 7.4-10.4 Abs Neutrophils 3.1 10^3/uL Normal 1.5-7.7 Abs Lymphocytes 0.3 10^3/uL Low 1.0-4.8 Abs Monocytes 0.2 10^3/uL Normal 0-0.8 Abs Eosinophils 0.0 10^3/uL Normal 0-0.6 Abs Basophils 0.0 10^3/uL Normal 0-0.2 Abs Nucleated RBC 0.0 10^3/uL Granulocyte % 85.1 % Lymphocyte % 9.4 % Monocyte % 5.2 % Eosinophil % 0.0 % Basophil % 0.3 % Nucleated Red Blood Cells % 0.1 Comp Metabolic Panel 09/14/2019 [facility] Sodium 130 mmol/L Low 135-[address] [place] [address] [phone] Potassium 3.7 mmol/L Normal 3.5-5.0 Chloride 98 mmol/L Low 101-111 Co2 Carbon Dioxide 23 mmol/L Normal 22-32 Anion Gap 9 mmol/L Normal 2-11 Glucose 121 mg/dL High 70-100 Blood Urea Nitrogen 18 mg/dL Normal 6-24 Creatinine 1.16 mg/dL High 0.51-0.95 BUN/Creatinine Ratio 15.5 Normal 8-20 Calcium 8.6 mg/dL Normal 8.6-10.3 Total Protein 6.9 g/dL Normal 6.4-8.9 Albumin 3.9 g/dL Normal 3.2-5.2 Globulin 3.0 g/dL Normal 2-4 Albumin/Globulin Ratio 1.3 Normal 1-3 Total Bilirubin 0.40 mg/dL Normal 0.2-1.0 Alkaline Phosphatase 75 U/L Normal 34-104 Alt 37 U/L Normal 7-52 Ast 42 U/L High 13-39 Egfr Non- 47.0 >60 Egfr 56.9 >60 1 Laboratory 09/14/2019 [facility] Troponin-I 0.02 ng/mL <0.04 2 test finding [address] (TnI) [place] [address] [phone] Inr/Protime 09/14/2019 [facility] Inr 1.08 Normal 0.82-1.[address] [place] [address] [phone] Laboratory 09/14/2019 [facility] Partial 33.6 Normal 26.0-38. test finding [address] Thrombo Time seconds 0 [place] [address] PTT [phone] Lactic Acid 0.5 mmol/L Normal 0.5-2.0 4 TSH (Thyroid Stim Horm) 0.45 mcIU/mL Normal 0.34-5.60 Blood Culture SEE RESULT BELOW 5 Poc Urinalysis 09/14/2019 [facility] Poc Glucose, Negative Negative [address] [place] [address] [phone] Poc Bilirubin, Urine 1+ Abnormal Negative Poc Ketone, Urine 1+ Abnormal Negative Poc Specific [place], Urine 1.020 Normal 1.010-1.030 Poc Blood, Urine 2+ Abnormal Negative Poc pH, Urine 6.5 Normal 5-9 Poc Protein, Urine 2+ Abnormal Negative Poc Urobilinogen, Urine 0.2 Negative Poc Nitrite, Urine Negative Negative Poc Leukocytes, Urine Negative Negative Poc Color, Urine Dark yellow Poc Clarity, Urine Clear 6 Rapid Influenza 09/14/2019 [facility] Influenza A NEGATIVE Negative 7 A & B Molecular [address] Molecular [place], [place] [id number] [phone] Influenza B Molecular NEGATIVE Negative 1 Because ethnic data is not always readily available, this report includes an eGFR for both -Americans and non- Americans. The National Kidney Disease Education Program (NKDEP) does not endorse the use of the MDRD equation for patients that are not between the ages of 18 and 70, are , have extremes of body size, muscle mass, or nutritional status, or are non- or non-. According to the National Kidney Foundation, irrespective of diagnosis, the stage of the disease is based on the level of kidney function: Stage Description GFR(mL/min/1.73 m(2)) 1 Kidney damage with normal or decreased GFR 90 2 Kidney damage with mild decrease in GFR 60-89 3 Moderate decrease in GFR 30-59 4 Severe decrease in GFR 15-29 5 Kidney failure <15 (or dialysis) 2 Troponin-I testing on Plasma Separator Tubes (PST) has a known false positive rate of 0.20-0.40%. All positive troponins reflex immediately to secondary confirmatory testing. Using the Sistemic DxI 800 Access Immunoassay systems, the 99th percentile upper reference limit was demonstrated to be < 0.03 ng/mL. 3 Standard intensity warfarin therapeutic range: 2.0-3.0 High intensity warfarin therapeutic range: 2.5-3.5 4 [facility] Severe Sepsis and Septic Shock Management Bundle Measure requires all lactic acids initially measuring >2.0 mmol/L be repeated. 5 SEE RESULT BELOW Name: GRETCHEN ORTEGA : [address]: Lolis Acevedo MD Acct: [id number] Unit: [id number] AGE: 64 Location: ED Re09/14/19 SEX: F Status: DEP ER SPEC: [id number] JASPER: 09/14/19 [facility] DR: Jorge SPENCE REQ: [id number] RECD: 09/14/19 STATUS: RES OTHR DR: [facility] Patricia Davalos MD _ SOURCE: BLOOD,VENO SPDES: ORDERED: Blood Cult Procedure Result Reported Site Aerobic Culture Bottle Preliminary 09/16/191839 ML No Growth Day 2 Anaerobic Culture Bottle Preliminary 09/16/191839 ML No Growth Day 2 * ML - Main Lab . END OF REPORT DEPARTMENT OF PATHOLOGY, [address] [place] [address] Carrillo Osorio M.D. Director [facility] # [id number] 6 Reading Interventionist: [id number] 7 Reading Interventionist: [id number] Procedures Date Code Description Status 01/16/2018 [id number] Mammogram Completed Medical Devices Description No Information Available Encounters Type Date Location Provider Dx Diagnosis Office Visit 08/26/2019 [facility] Julian Porter, S92.215A Nondisp fx of 8:45a at [facility] Sandoval cuboid bone of left foot, init for clos fx Office Visit 08/26/2019 [facility] Dermatology Haley Ramirez, L92.0 Granuloma 11:30a MD del cid L20.84 Intrinsic (allergic) eczema D22.5 Melanocytic nevi of trunk L82.1 Other seborrheic keratosis Office Visit 08/19/2019 11:00a [facility] Julian S92.215A Nondisp fx of at [facility] Porter M.D. cuboid bone of left foot, init for clos fx M17.11 Unilateral primary osteoarthritis, right knee Office Visit 08/13/2019 4:00p [facility] Internal Patricia Davalos, F33.9 [facility], unspecified M76.72 Peroneal tendinitis, left leg L20.9 Atopic dermatitis, unspecified M25.561 Pain in right knee E03.9 Hypothyroidism, unspecified 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 Assessments Date Code Description Provider 09/17/2019 R50.9 Fever, unspecified Zsofia Ron, HEALTH INFORMATION SPECIALIST 09/17/2019 A08.39 Other viral enteritis Reena Velasquez, HEALTH INFORMATION SPECIALIST 09/17/2019 F33.9 Major depressive disorder, recurrent, Zsofia Ron, HEALTH INFORMATION SPECIALIST unspecified 09/17/2019 N39.0 Urinary tract infection, site not specified Juaniofikamila Velasquez, HEALTH INFORMATION SPECIALIST 09/17/2019 R74.8 Abnormal levels of other serum enzymes Reena Velasquez, HEALTH INFORMATION SPECIALIST 08/26/2019 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 foot, initial encounter for closed fracture 08/19/2019 S92.215A Nondisplaced fracture of cuboid bone of left Julian Porter M.D. foot, initial encounter for closed fracture 08/19/2019 M17.11 Unilateral primary osteoarthritis, right Julian Porter M.D. knee 08/13/2019 F33.9 Major depressive disorder, recurrent, Patricia Davalos MD unspecified 08/13/2019 M76.72 Peroneal tendinitis, left leg Patricia Davalos MD 08/13/2019 L20.9 Atopic dermatitis, unspecified Patricia Davalos MD 08/13/2019 M25.561 Pain in right knee Patricia Davalos MD 08/13/2019 E03.9 Hypothyroidism, unspecified Patricia Davalos MD 08/13/2019 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 Patricia Davalos MD Plan of Treatment Future Appointment(s):09/25/2019 1:00 pm - Antonia Mauro M.D. at [facility] Internal Medicine - [facility]08/27/2020 9:30 am - Haley Ramirez MD at [facility] Sorndtaldkx99/30/2019 - Reena Velasquez, FNPR50.9 Fever, unspecifiedComments:You may take Tylenol as needed but if you can rest well and keep hydrated and the fever is < 102,you do not have to lower itA08.39 Other viral orqqaotlyF42.9 Major depressive disorder, recurrent, unspecifiedComments:May decrease the mirtazapine to 1/2 tab for nowN39.0 Urinary tract infection, site not ekqkaxmnoX67.8 Abnormal levels of other serum enzymes Functional Status Description No Information Available Mental Status Description No Information Available Referrals Refer to Reason for Referral Status Appt Date Julian Porter MD pt with chronic left ankle pain, MRI revealed Sent 08/19 peroneal tendinopathy [address] [facility] [place] [address] [phone]
[2019-09-18] MEDS ORDERED: Cefepime(*) 2 GM in NS 0.9% 50 ML* 50 ML IVPB ONE (18:00)
[2019-09-18] MEDS ORDERED: NS 0.9% 1000 ML** 1,000 ML IV ONE (18:01)
--- NOTE | 2019-09-18 18:16 | ED ---
HPI Febrile Illness - HPI Summary HPI Summary: Patient is a 64 y/o F presenting to the ED for a chief complaint of generalized weakness and fever. Patient is present with her . Patient went to Urgent Care and had labs drawn on 09/14/19. Patient was previously seen at Internal Medicine and was found to have low neutrophils and low platelets. Patient reports fever, chills, cough, diaphoresis at night, and decreased appetite. Patient had constipation one day ago and had a bowel movement with blood and mucous in the stool. Patient states that on 09/13/19 and 09/14/19, she fell twice after feeling a tightness in her core. Patient denies nausea, vomiting, diarrhea, dysuria, or hematuria. Patient took a 10 minute walk today without problems or complaints. Patient had a colonoscopy 4 years ago with a finding of benign polyps. Pt has a PMHx of hypothyroidism. Patient admits rare alcohol use , but denies drug or tobacco use. Patient takes levothyroxine and started mirtazapine one month ago. Allergies noted. Medications reviewed. - History of Current Complaint Chief Complaint: EDGeneral Time Seen by Provider: 09/18/19 17:34 Hx Obtained From: Patient Onset/Duration: Atraumatic, Still Present Timing: Constant Initial Severity: Mild Current Severity: Mild Pain Intensity: 1 Pain Scale Used: 0-10 Numeric Aggravating Factors: Nothing Alleviating Factors: Nothing Associated Signs and Symptoms: Chills, Cough, Diaphoresis - At night, Night Sweats, Weakness - Generalized, Other: - Positive decreased appetite - Allergy/Home Medications Allergies/Adverse Reactions: Allergies Allergy/AdvReac Type Severity Reaction Status Date / Time No Known Allergies Allergy Verified 09/14/19 15:36 Home Medications: Home Medications Mirtazapine TAB* [Remeron TAB*] 7.5 mg PO BEDTIME 09/18/19 [History Confirmed ] Risedronate Sodium 150 mg PO MONTHLY 09/18/19 [History Confirmed 09/18/19] Tacrolimus 0.1% OINT (NF) 1 applic TOPICAL BID PRN 09/18/19 [History Confirmed 09/18/19] PMH/Surg Hx/FS Hx/Imm Hx Previously Healthy: Yes Endocrine/Hematology History: Reports: Hx Thyroid Disease Musculoskeletal History: Denies: Hx Osteoporosis Sensory History: Denies: Hx Legally Blind, Hx Deafness Opthamlomology History: Denies: Hx Legally Blind EENT History: Denies: Hx Deafness - Surgical History Surgical History: Yes Surgery Procedure, Year, and Place: c section - Immunization History Immunizations Up to Date: Yes Infectious Disease History: No Infectious Disease History: Denies: Traveled Outside the [place] in Last 30 Days - Family History Known Family History: Negative: Diabetes - Social History Occupation: Retired Lives: With Family Alcohol Use: Rare Hx Substance Use: No Substance Use Type: Reports: None Hx Tobacco Use: No Smoking Status (MU): Never Smoked Tobacco Review of Systems Positive: Fever, Chills, Skin Diaphoresis - Night sweats, Other - Positive decreased appetite Positive: Cough Positive: Other - Positive constipation with a bowel movement with blood and mucous.. Negative: Vomiting, Diarrhea, Nausea Negative: dysuria, hematuria Positive: Other - Positive "tightness in her core." All Other Systems Reviewed And Are Negative: Yes Physical Exam - Summary Physical Exam Summary: Constitutional: Well-developed, Well-nourished, Alert. (-) Distressed Skin: Warm, Dry HENT: Normocephalic; Atraumatic Eyes: Conjunctiva normal Neck: Musculoskeletal ROM normal neck. (-) JVD, (-) Stridor, (-) Tracheal deviation Cardio: Rhythm regular, rate normal, Heart sounds normal; Intact distal pulses; Radial pulses are 2+ and symmetric. (-) Murmur Pulmonary/Chest wall: Effort normal. (-) Respiratory distress, (-) Wheezes, (-) Rales Abd: Soft, (-) tenderness, (-) Distension, (-) Guarding, (-) Rebound Musculoskeletal: (-) Edema Lymph: (-) Cervical adenopathy Neuro: Alert, Oriented x3 Psych: Mood and affect Normal Triage Information Reviewed: Yes Vital Signs On Initial Exam: Initial Vitals Temp Pulse Resp BP Pulse Ox 99.9 F 76 18 104/70 100 09/18/19 15:53 09/18/19 15:53 09/18/19 15:53 09/18/19 15:53 09/18/19 15:53 Vital Signs Reviewed: Yes Procedures - Sedation Patient Received Moderate/Deep Sedation with Procedure: No Diagnostics - Vital Signs Vital Signs Temp Pulse Resp BP Pulse Ox 09/18/19 18:09 101.5 F 09/18/19 15:53 99.9 F 76 18 104/70 100 - Laboratory Result Diagrams: 09/18/19 18:48 09/18/19 18:48 Lab Statement: Any lab studies that have been ordered have been reviewed, and results considered in the medical decision making process. Course/Dx - Course Course Of Treatment: Patient is here with one week of viral type symptoms with neutropenia diagnosed as an outpatient. Patient was febrile upon arrival so a sepsis workup was initiated with cefepime given empirically. Hematology was called and they think we should treat patient is neutropenic fever even though her jaw today showed adequate neutrophils. Patient is admitted to the hospitalist - Diagnoses Provider Diagnoses: Neutropenia with fever - Provider Notifications Discussed Care Of Patient With: Jorge Schreiber Time Discussed With Above Provider: 19:06 - At 19:06, Dr. Jorge Schreiber agrees to admit the patient to [facility] with a diagnosis of neutropenia with fever. At 19:22 , Dr. Koehler accepts the patient. Instructed by Provider To: Admit As Inpatient Discharge ED - Sign-Out/Discharge Documenting (check all that apply): Patient Departure - Admit - Discharge Plan Condition: Stable Disposition: ADMITTED TO [facility] Referrals: Patricia Davalos MD [Primary Care Provider] - - Billing Disposition and Condition Condition: STABLE Disposition: Admitted to [facility] - Attestation Statements Document Initiated by Jose M: Yes Documenting Giftyibe: Emeli Zhou Provider For Whom Jose M is Documenting (Include Credential): Shiva Corcoran MD Scribe Attestation: Emeli Santiago, scribed for Shiva Corcoran MD on 09/18/19 at 2046. Scribe Documentation Reviewed: Yes Provider Attestation: The documentation as recorded by the Emeli calhoun accurately reflects the service I personally performed and the decisions made by me, Shiva Corcoran MD Status of Scribe Document: Viewed
[2019-09-18 18:58] LABS: ABS Lymphocytes 0.9 10^3/ul (1.0-4.8); ABS Monocytes 0.2 10^3/ul (0-0.8); ABS Neutrophils 1.9 10^3/ul (1.5-7.7); Eosinophil % 0.1 %; Hematocrit 32 % (35-47); Hemoglobin 11.1 g/dL (12.0-16.0); Lymphocyte % 29.2 %; Mean Corpuscular HGB Conc 35 g/dL (31-36); Mean Corpuscular Hemoglobin 32 pg (27-31); Mean Corpuscular Volume 92 fL (80-97); Mean Platelet Volume 10.7 fL (7.4-10.4); Platelet Count 58 10^3/uL (150-450); Red Blood Count 3.46 10^6 /uL (3.70-4.87); Red Cell Distribution Width 14 % (10-15)
[2019-09-18 19:14] LABS: Troponin I 0.01 ng/mL (<0.04)
[2019-09-18] MEDS ORDERED: Acetaminophen TAB* 325 MG PO ONE (19:27)
[2019-09-18 19:28] LABS: Urine Appearance Clear; Urine Bacteria 1+ (Absent); Urine Bilirubin Negative (Negative); Urine Blood 2+ (Negative); Urine Color Yellow; Urine Glucose Negative (Negative); Urine Ketones Negative (Negative); Urine Nitrite Negative (Negative); Urine Protein Negative (Negative); Urine Red Blood Cell 1+(3-5/hpf) (Absent); Urine Specific Gravity 1.004 (1.010-1.030); Urine Urobilinogen Negative (Negative); Urine White Blood Cell Trace(0-5/hpf) (Absent)
[2019-09-18] MEDS ORDERED: Cefepime* 2 GM in Dextrose 50mL (Duplex) IV ONE (19:30)
[2019-09-18 19:35] LABS: Albumin 3.5 g/dL (3.2-5.2); Albumin/Globulin Ratio 1.2 (1-3); BUN/Creatinine Ratio 10.9 (8-20); Calcium 8.4 mg/dL (8.6-10.3); EGFR African American 74.4 (>60); EGFR Non-African American 61.5 (>60); Globulin 2.9 g/dL (2-4); Potassium 3.6 mmol/L (3.5-5.0); Total Bilirubin 0.5 mg/dL (0.2-1.0); Total Protein 6.4 g/dL (6.4-8.9)
[2019-09-18] MEDS ORDERED: Acetaminophen ADULT LIQ* 650 MG/20.3 ML UDC PO PRN (21:50)
--- NOTE | 2019-09-18 23:08 | HP ---
CC: Dr. Patricia Davalos; Dr. Jorge Schreiber ADMISSION HISTORY AND PHYSICAL: DATE OF ADMISSION: 09/18/19 PRIMARY CARE PHYSICIAN: Dr. Patricia Davalos. CHIEF COMPLAINT: Fever and neutropenia. HISTORY OF PRESENT ILLNESS: This is a 64-year-old female with past medical history of hypothyroidism ; dysthymia, recently started on mirtazapine about a month ago; eczema, recently discharged on tacrol imus about a month ago; osteoporosis; here due to abnormal blood test. The patient stated that she h as been having 2 weeks of cold, cough with bouts of coughing spells, and intermittent fever as high a s 103 degrees. She has been seen in [facility] once within the last 4 days along with trip to [facility] ER on 09/14/19, was not given any antibiotics and was subsequently discharged home with some viral syndrome and felt very weak on Sunday and Sunday with fevers as high as 103 as mentioned with head ache. No appetite as everything tastes bland, intermittent sweating especially on Sunday and Sunday , followed up with her nurse practitioner with blood tests that were done this morning, and post bloo d test results, she was recommended to go to the ER as her neutrophil count was very low along with h er platelets which were also very low. She denies any other chest pain. She states that her cough i s productive of clear sputum. No real shortness of breath. No abdominal pain, has some nausea, but no vomiting. Previously had some diarrhea, which has resolved. She did have an episode of fall and f eeling extremely dizzy yesterday. No other symptoms of slurred speech, any urinary burning sensation or pain with urination, any other numbness, tingling, or weakness and no vision disturbance. The orion zimmer does state that she does like to go on walks with her dogs, but denies any tick biting that she noticed or any rash other than her eczematous rash which has resolved after taking some topical ster oids and tacrolimus. PAST MEDICAL HISTORY: As mentioned hypothyroidism, dysthymia for which she was recently started on m irtazapine, eczema for which she takes topical steroids and tacrolimus, osteoporosis for which she wa s prescribed some risedronate, however, she stopped taking that and has some patellofemoral pain synd karina and recent left foot mild hairline fracture for which she has been receiving some physical thera py. PAST SURGICAL HISTORY: Includes , tonsillectomy, and dental surgery. HOME MEDICATIONS: The patient is on: 1. Tacrolimus ointment topical b.i.d. p.r.n. 2. Risedronate 150 mg, which she stopped taking. 3. Levothyroxine 88 mcg oral daily every morning. 4. Conjugated estrogens topical to the vagina. 5. Mirtazapine tablet 7.5 mg p.o. daily at bedtime. ALLERGIES: No known drug allergies. FAMILY HISTORY: Mother is alive at age 89, [address] Dr. Chiang for non-Hodgkin's lymphoma, otherwise heal thy. Dad at age 91, had a history of kidney and pancreatic cancer and with congestive hear t failure, used to follow with Dr. Schreiber. SOCIAL HISTORY: She denies smoking other than when she tried in her 20s, but never tried more than a year. Does drink alcohol about 3 to 4 times a week, usually just a glass of wine, but she stopped f or the last month ever since she started taking mirtazapine. Denies any other drug use. She has tri ed marijuana in her early 20s. 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 REVIEW OF SYSTEMS: A 14-point review of systems did not reveal any new information other than the on es in the HPI. PHYSICAL EXAMINATION GENERAL: The patient is awake, alert, and oriented x3, does not appear to be in any acute respirator y distress. VITAL SIGNS: In ER, T-max was recorded at 101.5 degrees axillary, BP was 104/70, heart rate 76, resp iration rate 18, saturating 100% on room air. MENTAL STATUS: Awake, alert, oriented x3. HEAD AND NECK: Atraumatic, normocephalic. Bilateral pupils are reactive. Oral mucosa is dry. Neck supple. No jugular venous distention. LUNGS: Clear to auscultation bilaterally. No wheezing, rhonchi, or rales. HEART: S1, S2. Regular rate and rhythm. ABDOMEN: Soft, nontender, and nondistended. EXTREMITIES: No cyanosis, clubbing, or edema. DIAGNOSTIC STUDIES/LAB DATA: CBC shows neutropenia with total white count of 3.0, neutrophils were noted to be at 1.9. When compared to this morning, neutrophils were noted to be 0.7. APTT was 36. Comprehensive metabolic panel shows hyponatremia with sodium of 132, BUN and creatinine were normal, lactic acid was normal. LFTs show some elevated AST at 84 and ALT noted to be normal at 49, alkaline phosphatase noted to be elevated at 136. Urinalysis was negative for any leukocyte esterase or nitr ites, was positive for 2+ blood. Portable chest x-ray did not reveal any pneumonia, official read by Radiology is still pending. IMPRESSION: This is a 64-year-old female with history of hypothyroidism, dysthymia, eczema, here due to pancytopenia with low white count, mild anemia with hemoglobin of 11.1, and thrombocytopenia with platelets of 58. ASSESSMENT AND PLAN: 1. Neutropenic fever. Start the patient on cefepime 2 g q.12 hours. Hematology consult placed, who will evaluate the patient in the morning. In the meantime, we will place the patient on neutropenic precautions, especially in light of the patient having neutropenia in the morning labs, although in the evening labs overall total neutrophil count seems to be in the normal range. We will repeat labs in the morning and consider removing the neutropenic precautions. We will also follow up cultures a nd followup tick panel and Lyme titer ordered by the PCP, which were sent this morning to rule out an y other causes of the patient's pancytopenia and further workup would be directed by based on Hematol tanner's recommendation. In the meantime, we will stop the patient's mirtazapine which has been known t o cause blood dyscrasias along with tacrolimus. 2. History of hypothyroidism. We will restart home levothyroxine. 3. History of dysthymia. We will hold the mirtazapine as mentioned. 4. History of eczema. We will hold the tacrolimus as mentioned. 5. History of osteoporosis. Currently not taking any medications. 6. DVT prophylaxis with sequential compression device. 7. Code status: Full code with being the surrogate decision maker. [id number]/[facility] #: [id number]
[2019-09-19] MEDS: Levothyroxine TAB* 88 MCG TAB PO SCH (06:30)
[2019-09-19 07:01] LABS: Immature Retic Fraction 0.34; RBC Retic Count 3.49 10^6/uL (3.70-4.87); Red Blood Count 3.49 10^6 /uL (3.70-4.87)
[2019-09-19 07:05] LABS: Corrected Retic Count 0.3 % (0.5-1.5); Hematocrit 32 % (35-47); Hematocrit for Retic CNT 32 % (35-47); Hemoglobin 11.2 g/dL (12.0-16.0); Mean Corpuscular HGB Conc 35 g/dL (31-36); Mean Corpuscular Hemoglobin 33 pg (27-31); Mean Corpuscular Volume 93 fL (80-97); Mean Platelet Volume 10.5 fL (7.4-10.4); Platelet Count 58 10^3/uL (150-450); Red Cell Distribution Width 14 % (10-15); White Blood Count 3.2 10^3/uL (3.5-10.8)
[2019-09-19 07:07] LABS: Anion Gap 7 mmol/L (2-11); Blood Urea Nitrogen 10 mg/dL (6-24); CO2 Carbon Dioxide 24 mmol/L (22-32); Calcium 8.3 mg/dL (8.6-10.3); Chloride 106 mmol/L (101-111); EGFR African American 67.5 (>60); EGFR Non-African American 55.8 (>60); Glucose 92 mg/dL (70-100); Potassium 3.8 mmol/L (3.5-5.0); Sodium 137 mmol/L (135-145)
[2019-09-19 07:08] LABS: ABS Lymphocytes 2.2 10^3/ul (1.0-4.8); ABS Monocytes 0.3 10^3/ul (0-0.8); ABS Neutrophils 0.6 10^3/ul (1.5-7.7); Eosinophil % 0.3 %; Lymphocyte % 68.6 %; Nucleated Red Blood Cells % 0.5
[2019-09-19 07:17] LABS: % Iron Saturation 14 % (15-55); Iron 32 ug/dL (50-212); Total Iron Binding Capacity 235 mcg/dL (250-450); Transferrin 168 mg/dL (203-362)
[2019-09-19 07:32] LABS: TSH (Thyroid Stimulating Horm) 6.73 mcIU/mL (0.34-5.60)
[2019-09-19 07:41] LABS: Ferritin > 1500.0 ng/mL (11-307)
[2019-09-19 07:43] LABS: Folate 16.33 ng/mL (>3.99)
[2019-09-19] MEDS: Cefepime 2 GM in Dextrose(*) 2 GM/50 ML BAG IV SCH ×2 (09:25→19:32)
[2019-09-19 10:22] LABS: LDH 298 U/L (140-271); Rheumatoid Factor < 10 IU/mL (<15)
[2019-09-19] MEDS: NS 0.9% 1000 ML** 1,000 ML IV SCH ×2 (10:39→19:32)
[2019-09-19] MEDS ORDERED: FILGRASTIM-SNDZ* 480 MCG/0.8 ML SYRINGE SUBCUT SCH (11:00)
[2019-09-19 11:07] LABS: Influenza A Molecular NEGATIVE (Negative); Influenza B Molecular NEGATIVE (Negative)
[2019-09-19 11:31] LABS: Erythrocyte Sed Rate 30 mm/Hr (0-29)
--- NOTE | 2019-09-19 12:30 | CONS ---
AMENDED REPORT NOW INCLUDES DATE OF CONSULT CONSULTATION REPORT: DATE OF CONSULT: 09/19/19 REASON FOR CONSULTATION: Thrombocytopenia and neutropenia. HISTORY OF PRESENT ILLNESS: Ms. Grier is a generally healthy 64-year-old female. She has history of immune based hypothyroidism as well as eczema. She had an upper respiratory infection 2 weeks ago that was apparently typical URI for her. She had runny nose, sinus congestion followed by cough. Cough generally lasts for several weeks. She started to get better and then had a turn where she started to feel worse again. This happened approximately 1 week ago. She detailed one day waking up in the morning, that things were not right. She had a diffuse uneasiness, hot flash, and some near syncope. Last Sunday, she actually fell and passed out. She revived quickly and she and her decided not to go to the emergency room, but they called their primary care physician's office. She was instructed at that time to go to [facility]. She did and then was referred from there to the emergency room. She had a CBC done on 09/14/19 that showed a white count of 3.6, hemoglobin 12.5 , MCV 94, platelets of 123,000 and a white count of 3.1. Chemistry showed a sodium that was low at 130, creatinine slightly elevated at 1.16, and an AST of 42. She went home, was not treated with antibiotics. Differential diagnosis at that time was viral infection. Her high temperature prior to coming into the [facility] was about 103, she continued to have temperature of 101. Over the next 2 days, symptoms continued including low-grade fever. She then went in to see Ms. Reena Velasquez at [facility]. She had repeat blood counts done on that showed a white count of 2.5, ANC of 700, hemoglobin 11.8, MCV 93, and platelets down to 44,000. Based on that, she was instructed to go to the emergency room. On presentation, she had a temperature that went to 101.5, down from the temperature of 103.7, which was high on 09/14/19. She was admitted, placed on IV antibiotics for neutropenic fever. She had 1 repeat CBC that showed white count up to 1.9 then repeat this morning showed an ANC of 600. However, platelets were stable at 58,000 and hemoglobin down slightly to 11.2, with a continued normal MCV. She has never had episodes of low blood counts in the past that she is aware of. She has been followed at [place] up until recently when she started to see Dr. Davalos at [facility]. In addition to general weakness and recurrent fevers and hot flashes, she has had intermittent abdominal discomfort, headache that has come and gone, persistent cough that has been nonproductive. She had moderate amount of diarrhea last week, no skin rashes, no joint pain. She has a longstanding vaginal dryness treated with estrogen cream, no recent vaginal bleeding. PAST MEDICAL HISTORY: 1. Low thyroid treated with levothyroxine. 2. Mild depression, recently started on Remeron 1 month ago. 3. Eczema with tacrolimus ointment. 4. Osteopenia. PAST SURGICAL HISTORY: . ALLERGIES: None. FAMILY HISTORY: Malignancy does run in the family, no history of immune disease. SOCIAL HISTORY: Drinks very rarely, does not smoke. . PHYSICAL EXAM: Temperature 98.0, BP 139/90, temperature of 100, respiratory rate 24. HEENT: Mucosa moist, no lesions. Neck: No lymphadenopathy. Nodes: No axillary or inguinal lymphadenopathy, no palpable spleen. Lungs: Clear to auscultation. Heart: Regular rate and rhythm. S1, S2. No murmurs or gallops. Abdomen: Nontender, nondistended. Good bowel sounds. Extremities: Warm to touch. Good pulses. Skin: No rashes. Neurologic: Alert and oriented x3, nonfocal. DIAGNOSTIC STUDIES/LAB DATA: Blood film shows leukopenia, but a fairly normal differential with a significant number of neutrophils. There are small lymphocytes as well as population of activated lymphocytes, occasional monocytes. No evidence of dysplasia, no evidence of early progenitors. Red blood cell morphology is normal. Platelets are numerous and small, no clumping. Other significant blood work includes a retic count that is suppressed, TSH of 6.73, and a ferritin over 1500. ASSESSMENT AND PLAN: A 64-year-old female who presents with neutropenia and fever. Differential diagnosis include drug reaction to Remeron is possible, history of autoimmune disease and this could be new onset immune cytopenias, lymphoma and marrow dysfunction are possible, but seem unlikely. The blood film was reviewed with Pathology, reactive lymphocytes did not appear malignant on the peripheral film. 1. Send inflammatory markers including C-reactive protein, ESR, IVONNE, and rheumatoid factor. 2. We will check LDH, uric acid, and if elevated, consider either CT scan or in the future bone marrow biopsy. 3. Assuming drug reaction, treat with Neupogen 300 mcg subcu daily and follow counts. 4. Continue IV antibiotics for neutropenic fever, follow up for cultures. [id number]/[facility] #: [id number] [facility]
[2019-09-19 15:07] LABS: HDL Cholesterol 6.2 mg/dL
--- NOTE | 2019-09-19 15:14 | PN ---
Hospitalist Progress Note Date of Service: 09/19/19 S/IE: Gretchen Grier is a 64 year-old woman with a history of hypothyroidism, eczema, dysthymia and osteoporosis who presented with abnormal lab results concerning for neutropenia / pancytopenia related to a recent 2 week history of night sweats, headache, productive cough and intermittent fevers as high as 103 and was admitted to the hospitalist service last evening. She presently has an occasional cough and some mild abdominal discomfort. Recent travel to [place] - reports some mosquito bites. 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 Vegetarian diet. Started on PO mirtazapine for depression and sleep disturbances within the last month and also started on tacrolimus ointment for eczema within the last month. Presently denies CP, SOB, fever, chills, sweats, changes in weight, rash other than eczema, n/v, pain / burning on urination. Had been seen in urgent care and ED for suspected viral illness and had f/u with [facility] [employer] in primary care clinic yesterday, had labs drawn and was later advised to come to the hospital based on the lab results. She was started on cefepime for neutropenic fever and neutropenic precautions are in place. She feels generally well, is in no pain and is somewhat perplexed as to why she needs to be in the hospital. Hematology has been consulted. O: PE: 3 Temp Pulse Resp BP Pulse Ox 98.0 F 62 20 110/70 100 09/19/19 15:49 09/19/19 15:49 09/19/19 15:49 09/19/19 15:49 09/19/19 15:49 General: AAAOx4, appears stated age, in no acute distress, resting comfortably in bed, pleasantly cooperates with interview and examination. HEENT: Head atraumatic, normocephalic. Auditory acuity grossly normal. PERRLA. EOMI. Visual acuity grossly normal. Nares patent. Oral mucosa pink and moist. Neck supple. Trachea midline. No JVD. No lymphadenopathy. Chest: Breathing unlabored with normal symmetric chest wall motion. Lungs clear to auscultation b/l. Regular heart rhythm. Normal S1/S2. No rubs, click, gallops. Abdomen: Abdomen soft, non-tender and non-distended. Liver palpable 2 cm below the costal margin. Spleen not palpable. Extremities: UE and LE distal CMS intact with 5/5 muscle strength. Some eczema noted on the right hand. Pertinent Lab Results: 3 09/19/19 09/19/19 14:25 14:25 WBC 4.6 RBC 3.30 L Hgb 11.0 L Hct 31 L MCH 33 H Plt Count 76 L MPV 10.6 H Absolute Neuts (auto) 2.1 Absolute Lymphs (auto) 2.2 Reactive Lymphs % 9.0 H Lactate Dehydrogenase 295 H 3 09/19/19 09/19/19 05:25 05:25 WBC 3.2 L RBC 3.49 L RBC (Retic) 3.49 L Hgb 11.2 L Hct 32 L HCT (Retic) 32 L MCH 33 H Plt Count 58 L MPV 10.5 H Absolute Neuts (auto) 0.6 L* Reactive Lymphs % 14.0 H D Nucleated RBCs/100 WBC 1.0 H ESR 30 H Retic Count, Calc 0.4 L Corrected Retic Count 0.3 L Sodium 137 Potassium 3.8 Chloride 106 Creatinine 1.00 H Glucose 92 Calcium 8.3 L Iron 32 L TIBC 235 L % Saturation 14 L Transferrin 168 L Ferritin > 1500.0 H Lactate Dehydrogenase 298 H C-Reactive Protein 53.80 H TSH 6.73 H 3 09/18/19 09/18/19 18:48 18:48 WBC 3.0 L RBC 3.46 L Hgb 11.1 L Hct 32 L MCH 32 H Plt Count 58 L MPV 10.7 H Absolute Neuts (auto) 1.9 Absolute Lymphs (auto) 0.9 L Sodium 132 L Potassium 3.6 Chloride 99 L Creatinine 0.92 Glucose 103 H Calcium 8.4 L AST 84 H ALT 49 Alkaline Phosphatase 136 H 3 09/18/19 19:10 Ur Specific [place] 1.004 L Urine Blood 2+ A Urine RBC (Auto) 1+(3-5/hpf) A Urine Bacteria 1+ A Hematology Consultation (09/19/19): ASSESSMENT AND PLAN: A 64-year-old female who presents with neutropenia and fever. Differential diagnosis include drug reaction to Remeron is possible, history of autoimmune disease and this could be new onset immune cytopenias, lymphoma and marrow dysfunction are possible, but seem unlikely. The blood film was reviewed with Pathology, reactive lymphocytes did not appear malignant on the peripheral film. 1. Send inflammatory markers including C-reactive protein, ESR, IVONNE, and rheumatoid factor. 2. We will check LDH, uric acid, and if elevated, consider either CT scan or in the future bone marrow biopsy. 3. Assuming drug reaction, treat with Neupogen 300 mcg subcu daily and follow counts. 4. Continue IV antibiotics for neutropenic fever, follow up for cultures. CXR (09/18/19): FINDINGS: LINES AND TUBES: None. CARDIOMEDIASTINAL SILHOUETTE: The cardiomediastinal silhouette is normal for portable technique. PLEURA: The costophrenic angles are sharp. No pleural abnormalities are noted. LUNG PARENCHYMA: The lungs are clear. ABDOMEN: The upper abdomen is clear. There is no subphrenic gas. BONES AND SOFT TISSUES: No bone or soft tissue abnormalities are noted. IMPRESSION: NO ACTIVE CARDIOPULMONARY DISEASE. Current Medications: Acetaminophen (Tylenol Adult Liq*) 650 mg PO Q4H PRN PRN Reason: MILD PAIN or TEMP > 100.4 Filgrastim-Sndz (Zarxio*) 480 mcg SUBCUT DAILY [facility] Last Admin: 09/19/19 11:50 Dose: 480 mcg Sodium Chloride (Ns 0.9% 1000 Ml) 1,000 mls @ 100 mls/hr IV PER RATE [facility] Last Admin: 09/19/19 10:39 Dose: 100 mls/hr Cefepime HCl (Maxipime 2 Gm In Dextrose Duplex (*)) 2 gm in 50 mls @ 100 mls/ hr IV Q12H [facility] Last Admin: 09/19/19 09:25 Dose: 100 mls/hr Levothyroxine Sodium (Synthroid Tab*) 88 mcg PO 0600 [facility] Last Admin: 09/19/19 06:30 Dose: 88 mcg Recent Orders: 09/18/19 18:48 Tick-Borne Panel,PCR Blood Stat 09/18/19 19:05 Blood Culture Stat 09/18/19 19:10 Urine Culture Stat 09/18/19 20:54 Sputum Culture & Gram Stain Stat 09/18/19 21:31 Up with Assistance Activity Routine Admit Routine Consult to Provider Routine Call Provider if:(View Detail) .ONCE MRSA NasalSwab if Criteria Met ONCE Sequential Compression Device QSHIFT Vital Signs - Manual Entry Q4H Clinical Screening Routine DVT Risk Assessment Routine Full Code Routine 09/18/19 21:45 Ns 0.9% 1000 ml 1,000 ml IV PER RATE 09/18/19 21:50 Acetaminophen ADULT LIQ* [Tylenol ADULT LIQ*] 650 mg PO Q4H PRN 09/18/19 21:51 Neutropenic Precautions [CARE - PRECAUTIONS] QSHIFT 09/19/19 05:25 Anti Nuclear Antibody Routine Protein Electrophoresis Serum Routine 09/19/19 06:00 Levothyroxine TAB* [Synthroid TAB*] 88 mcg PO 0600 09/19/19 07:30 Cefepime 2 GM in Dextrose(*) [Maxipime 2 GM in Dextrose Duplex (*)] 2 gm in 50 ml IV Q12H 09/19/19 11:00 Filgrastim-Sndz* [Zarxio*] 480 mcg SUBCUT DAILY 09/19/19 14:25 CBC Auto Diff Routine Call Hep C Routine HIV 1&2 p24 Screen Routine Hepatitis Acute Panel Routine Hepatitis C RNA Quantitative Routine Manual Differential Routine Pathologist Review Routine 09/19/19 14:33 CMV IgG &IgM Routine [place] Fer[place] Virus (EBV), IgG Routine 09/20/19 06:00 Basic Metabolic Panel [CHEM] Routine CBC Auto Diff Routine A/I: 64 year-old woman with a history of hypothyroidism, eczema, dysthymia and osteoporosis with abnormal lab results concerning for neutropenia / pancytopenia related to a recent 2 week history of night sweats, headache, productive cough and intermittent fevers as high as 103. P: Pancytopenia: Immediate concern for possible HLH. Broad etiological differential including drug-induced, bacterial / viral infections, auto-immune conditions and malignancies. Neutropenic precautions in place. Lower suspicion for malignancy based upon hematology review of blood smear. Higher suspicion for drug induced and auto-immune causes. Holding mirtazapine and tacrolimus as possible etiological agents. Ordered numerous tests as above to investigate various possible infectious and auto-immune causes. Started filgrastim as above per hematology recommendations. Neutropenia appears to have resolved. RBC and PLT counts coming up. Continue to monitor labs and vitals and re-assess as new test results come in and / or condition changes. Neutropenic Fever: Immediate concern for possible HLH. Received IV cefepime as above. Hypothyroidism: Chronic condition most recently being treated with levothyroxine. Continuing levothyroxine as above. Dysthymia: Chronic condition most recently being treated with mirtazapine. Holding mirtazapine as above as it is a potential etiology of pancytopenia. Eczema: Chronic condition most recently being treated with tacrolimus ointment. Holding tacrolimus as above as it is a potential etiology of pancytopenia. DVT Prophylaxis: Sequential compression device
[2019-09-19 15:48] LABS: HIV 4th Generation Nonreactive (Nonreactive)
[2019-09-19 15:52] LABS: Hepatitis B Surface Antigen Nonreactive (Nonreactive)
--- NOTE | 2019-09-19 16:13 | PN ---
Subjective Date of Service: 09/19/19 Interval History: One episode of fever with Tmax 101.5 overnight. Mild cough, which patient contributed to recent URI No abdominal pain, no dysuria. No recent travel out of [facility]. Last travel to [place] where her daughter got . Tick bite before, but no engorged tick Objective Active Medications: Acetaminophen (Tylenol Adult Liq*) 650 mg PO Q4H PRN PRN Reason: MILD PAIN or TEMP > 100.4 Filgrastim-Sndz (Zarxio*) 480 mcg SUBCUT DAILY [facility] Last Admin: 09/19/19 11:50 Dose: 480 mcg Sodium Chloride (Ns 0.9% 1000 Ml) 1,000 mls @ 100 mls/hr IV PER RATE [facility] Last Admin: 09/19/19 10:39 Dose: 100 mls/hr Cefepime HCl (Maxipime 2 Gm In Dextrose Duplex (*)) 2 gm in 50 mls @ 100 mls/ hr IV Q12H [facility] Last Admin: 09/19/19 09:25 Dose: 100 mls/hr Levothyroxine Sodium (Synthroid Tab*) 88 mcg PO 0600 [facility] Last Admin: 09/19/19 06:30 Dose: 88 mcg Vital Signs - 8 hr 09/19/19 10:49 Temperature 97.9 F Respiratory 18 Rate O2 Sat by Pulse 100 Oximetry Oxygen Devices in Use Now: None Exam: Appearance: comfortably sitting on bed Eyes: No Scleral Icterus Ears/Nose/Mouth/Throat: Clear Oropharnyx, Mucous Membranes Moist Neck: NL Appearance and Movements; NL JVP, Trachea Midline Respiratory: Symmetrical Chest Expansion and Respiratory Effort, Clear to Auscultation Cardiovascular: NL Sounds; No Murmurs; No JVD, RRR Abdominal: soft, non tender, no hepatomegaly or spleenmegaly Extremities: no edema Lymph Node: no cervical, inguinal lymphadenopathy Result Diagrams: 09/19/19 14:25 09/19/19 05:25 Assess/Plan/Problems-Billing Assessment: 64 y/o female with history of hypothyroidism, dysthymia, eczema, recent initiation of mirtazepine and topical tacrolimus, presented with fever for 1 week, found to have pancytopenia, transaminitis, high ferritin. - Patient Problems (1) Pancytopenia Current Visit: Yes Status: Acute Code(s): D61.818 - OTHER PANCYTOPENIA SNOMED Code(s): 326157946 Comment: - Differential keeps broad at this moment, medication related, infection (bacterial, viral such as CMV, EBV, HIV), tick borne infection ( anaplasmosis, ehrlichiosis), malignancy such as leukemia and lymphoma, autoimmune disease all likely - there is a concern of HLH with high ferritin, elevated LDH, pancytopenia - off two insulting medication mirtazepine, topical tacrolimus - will screen for common viral infection, tick borne disease, lipid panel; consider test CD25 - thanks for hematology recs, will give GCSF one dose since benign looking peripheral smear (2) Neutropenic fever Current Visit: Yes Status: Acute Code(s): D70.9 - NEUTROPENIA, UNSPECIFIED; R50.81 - FEVER PRESENTING WITH CONDITIONS CLASSIFIED ELSEWHERE SNOMED Code(s) : 301187859 Comment: - no specific sources - a/w blood c/s, urine cs - continue iv cefepime - neutropenic precaution (3) Hypothyroidism Current Visit: Yes Status: Acute Code(s): E03.9 - HYPOTHYROIDISM, UNSPECIFIED SNOMED Code(s): 66128543 Comment: - mildly elevated tsh - could be sick euthyroid (4) Dysthymia Current Visit: Yes Status: Acute Code(s): F34.1 - DYSTHYMIC DISORDER SNOMED Code(s): 04361637 Comment: - off mirtazepine as a potential cause for her primary problem - watch her mood (5) Eczema Current Visit: Yes Status: Acute Code(s): L30.9 - DERMATITIS, UNSPECIFIED SNOMED Code(s): 98863472 Comment: - off topical tacrolimus (6) DVT prophylaxis Current Visit: Yes Status: Acute Code(s): Z29.9 - ENCOUNTER FOR PROPHYLACTIC MEASURES, UNSPECIFIED SNOMED Code(s): 609843870 Comment: ambulatory Status and Disposition: Inpatient Medicine Attestation Documenting Resident: Teresa Chakraborty Supervising Physician: Izabel Cole Attending/Supervising Physician Comment: I explained the possible etiologies of her pancytopenia to Gretchen and her , including infectious, inflammatory, autoimmune, and malignant. HLH is the most concerning possibility, along with aplastic anemia, acute leukemia, lymphoma, etc., but based on Dr. Schreiber's consult it seems that the smear appeared entirely benign. Will continue coverage for neutropenic fever with cefepime and follow up on the pending labs and cultures. Attestation: This service has been performed in part by a resident under the direction of a teaching physician.I, Izabel Cole, performed the service, or was physically present during the critical, or palma portions of the service, furnished by the resident. I participated in the management of the patient.
[2019-09-19 16:17] LABS: ABS Lymphocytes 2.2 10^3/ul (1.0-4.8); ABS Monocytes 0.3 10^3/ul (0-0.8); ABS Neutrophils 2.1 10^3/ul (1.5-7.7); Eosinophil % 0.6 %; Hematocrit 31 % (35-47); Lymphocyte % 47.4 %; Mean Corpuscular HGB Conc 36 g/dL (31-36); Mean Corpuscular Hemoglobin 33 pg (27-31); Mean Corpuscular Volume 93 fL (80-97); Mean Platelet Volume 10.6 fL (7.4-10.4); Nucleated Red Blood Cells % 0.1; Platelet Count 76 10^3/uL (150-450); Red Cell Distribution Width 14 % (10-15); White Blood Count 4.6 10^3/uL (3.5-10.8)
[2019-09-19 18:50] LABS: Hepatitis C Antibody Reactive (Negative)
--- NOTE | 2019-09-19 19:16 | PTEDU ---
Patient Name: SNOW ORTEGA SHANNON SNOW selected video: Frozen Shoulder to view on 09/19/2019 at 7:15:37 PM from [id number]
[2019-09-19] MEDS ORDERED: Melatonin 3 MG TAB PO ONE (20:30)
[2019-09-20] MEDS: NS 0.9% 1000 ML** 1,000 ML IV SCH (05:57)
[2019-09-20] MEDS: Levothyroxine TAB* 88 MCG TAB PO SCH (05:57)
[2019-09-20 06:12] LABS: ABS Lymphocytes 3.9 10^3/ul (1.0-4.8); ABS Monocytes 1.2 10^3/ul (0-0.8); ABS Neutrophils 15.8 10^3/ul (1.5-7.7); Eosinophil % 0.2 %; Hematocrit 30 % (35-47); Hemoglobin 10.1 g/dL (12.0-16.0); Lymphocyte % 18.6 %; Mean Corpuscular HGB Conc 34 g/dL (31-36); Mean Corpuscular Hemoglobin 32 pg (27-31); Mean Corpuscular Volume 93 fL (80-97); Mean Platelet Volume 10.1 fL (7.4-10.4); Platelet Count 98 10^3/uL (150-450); Red Blood Count 3.16 10^6 /uL (3.70-4.87); Red Cell Distribution Width 14 % (10-15); White Blood Count 21.1 10^3/uL (3.5-10.8)
[2019-09-20 07:07] LABS: BUN/Creatinine Ratio 7.8 (8-20); EGFR African American 76.3 (>60); Potassium 3.8 mmol/L (3.5-5.0)
--- NOTE | 2019-09-20 07:23 | PN ---
Hospitalist Progress Note Date of Service: 09/20/19 S/IE: Gretchen Grier is a 64 year-old woman with a history of hypothyroidism, eczema, dysthymia and osteoporosis who presented with abnormal lab results concerning for neutropenia / pancytopenia related to a recent 2 week history of night sweats, headache, productive cough and intermittent fevers as high as 103 and was admitted to the hospitalist service on 09/18/19. This is hospital day 3. Still some occasional cough. No pain or discomfort. Continues to deny CP, SOB , fever, chills, sweats, changes in weight, rash other than eczema, n/v, pain / burning on urination. She feels generally well, is in no pain and remains somewhat perplexed as to why she needs to be in the hospital and wants to leave. Concerned about the medical team discussing her case in common areas of the hospital, feels this is a privacy concern. Also concerned about the medical team ordering expensive treatments, particularly the filgrastim, without first discussing the cost with her. Discussed these concerns with the team and assured her that efforts will be made to respect her wishes. Also unhappy about being woken up during the night for nursing / vital sign checks. Agreed to eliminate nighttime checks as long as she remains stable. Educated her regarding the potential severity of her condition, which she did not seem to fully appreciate, and the importance of finding the etiology before she can be safely discharged. She is reluctantly agreeing to remain hospitalized at this time while we continue to investigate. O: PE: 3 Temp Pulse Resp BP Pulse Ox 98.5 F 64 16 112/76 100 09/20/19 10:58 09/20/19 10:58 09/20/19 10:58 09/20/19 10:58 09/20/19 10:58 General: AAAOx4, appears stated age, in no acute distress, resting comfortably in bed, pleasantly cooperates with interview and examination. HEENT: Head atraumatic, normocephalic. Auditory acuity grossly normal. PERRLA. EOMI. Visual acuity grossly normal. Nares patent. Oral mucosa pink and moist. Neck supple. Trachea midline. No JVD. No lymphadenopathy. Chest: Breathing unlabored with normal symmetric chest wall motion. Lungs clear to auscultation b/l. Regular heart rhythm. Normal S1/S2. No rubs, click, gallops. Abdomen: Abdomen soft, non-tender and non-distended. Liver palpable 2 cm below the costal margin. Spleen not palpable. Extremities: UE and LE distal CMS intact with 5/5 muscle strength. Some eczema noted on the right hand. Pertinent Lab Results: 3 09/20/19 09/20/19 05:28 06:15 WBC 21.1 H RBC 3.16 L Hgb 10.1 L Hct 30 L MCH 32 H Plt Count 98 L MPV 10.1 Absolute Neuts (auto) 15.8 H Absolute Lymphs (auto) 3.9 Absolute Monos (auto) 1.2 H Sodium 137 Potassium 3.8 Chloride 105 Creatinine 0.90 BUN/Creatinine Ratio 7.8 L Glucose 96 Calcium 8.0 L 3 09/20/19 06:15 Total Bilirubin 0.70 Direct Bilirubin 0.10 Indirect Bilirubin 0.6 AST 159 H ALT 110 H Alkaline Phosphatase 139 H Total Protein 5.7 L Albumin 3.2 Globulin 2.5 Albumin/Globulin Ratio 1.3 3 09/19/19 09/19/19 09/19/19 14:25 14:25 14:25 WBC 4.6 RBC 3.30 L Hgb 11.0 L Hct 31 L MCH 33 H Plt Count 76 L MPV 10.6 H Absolute Neuts (auto) 2.1 Absolute Lymphs (auto) 2.2 Absolute Monos (auto) 0.3 Reactive Lymphs % 9.0 H Lactate Dehydrogenase Triglycerides 386 Cholesterol 145 LDL Cholesterol 62 HDL Cholesterol 6.2 Hepatitis A IgM Ab Negative Hep Bs Antigen Nonreactive Hep B Core IgM Ab Nonreactive Hepatitis C Antibody Reactive A Hepatitis C Ab Index 2.47 HIV 1&2 Ab/P24 Ag 4thGn Nonreactive 3 09/19/19 10:30 Influenza A (Rapid) Negative Influenza B (Rapid) Negative Urine Culture Results (09/20/19): No growth - final Venous Blood Culture Results (09/19/19): No growth - day 1 Active Medications: Acetaminophen (Tylenol Adult Liq*) 650 mg PO Q4H PRN PRN Reason: MILD PAIN or TEMP > 100.4 Enoxaparin Sodium (Lovenox(*)) 30 mg SUBCUT Q24H YESSICA Cefepime HCl (Maxipime 2 Gm In Dextrose Duplex (*)) 2 gm in 50 mls @ 100 mls/ hr IV Q12H [facility] Last Admin: 09/20/19 08:34 Dose: 100 mls/hr Levothyroxine Sodium (Synthroid Tab*) 88 mcg PO 0600 [facility] Last Admin: 09/20/19 05:57 Dose: 88 mcg Recent Orders: 09/19/19 14:25 CBC Auto Diff Routine Call Hep C Routine Hepatitis C RNA Quantitative Routine Manual Differential Routine Pathologist Review Routine 09/19/19 14:33 CMV IgG &IgM Routine [place] Ferreira Virus (EBV), IgG Routine 09/20/19 10:00 Enoxaparin(*) [Lovenox(*)] 30 mg SUBCUT Q24H 09/20/19 10:15 US ABDOMEN COMPLETE [US] Routine 09/21/19 08:00 CBC Auto Diff Routine Comprehensive Metabolic Panel [CHEM] Routine PT/INR [INR] Routine A/I: 64 year-old woman with a history of hypothyroidism, eczema, dysthymia and osteoporosis with abnormal lab results concerning for neutropenia / pancytopenia related to a recent 2 week history of night sweats, headache, productive cough and intermittent fevers as high as 103. P: Pancytopenia: Now lower concern for possible HLH based upon improvement and stability. Continuing to pursue broad etiological differential including drug-induced, bacterial / viral infections, auto-immune conditions and malignancies. Ordered numerous tests as above to investigate various possible infectious and auto-immune causes. Many results still pending. Positive anti-body test for hepatitis C. Hep C RNA quantitative pending. Ordered ABD US. Lower suspicion for malignancy based upon hematology review of blood smear. Higher suspicion for drug induced and auto-immune causes. Continuing to hold mirtazapine and tacrolimus as possible etiological agents. Started filgrastim as above per hematology recommendations. Neutropenia appears to have resolved. WBC count now elevated. Need to wait to see if count stabilizes or drops too low after effect of this WBC production stimulus wears off. Continue to monitor labs and vitals and re-assess as new test results come in and / or condition changes. Neutropenic Fever: Has remained afebrile for over 24 hours Now lower suspicion for possible HLH Ordered additional dose of IV cefepime as above for continued prophylaxis D/c neutropenic precautions Hypothyroidism: Chronic condition most recently being treated with levothyroxine Continuing levothyroxine as above Dysthymia: Chronic condition most recently being treated with mirtazapine Holding mirtazapine as above as it is a potential etiology of pancytopenia Eczema: Chronic condition most recently being treated with tacrolimus ointment Holding tacrolimus as above as it is a potential etiology of pancytopenia DVT Prophylaxis: Ordered Lovenox as above Sequential compression device
[2019-09-20 07:35] LABS: Albumin 3.2 g/dL (3.2-5.2); Albumin/Globulin Ratio 1.3 (1-3); Globulin 2.5 g/dL (2-4); Indirect Bilirubin 0.6 mg/dL (0.3-1.0); Total Bilirubin 0.7 mg/dL (0.2-1.0); Total Protein 5.7 g/dL (6.4-8.9)
[2019-09-20] MEDS: Cefepime 2 GM in Dextrose(*) 2 GM/50 ML BAG IV SCH ×2 (08:34→19:40)
[2019-09-20] MEDS ORDERED: NS 0.9% 500 ML* 500 ML IV ONE (10:18)
[2019-09-20] MEDS: Enoxaparin(*) 30 MG/0.3 ML SYR SUBCUT SCH (12:46)
[2019-09-20 13:14] LABS: Cytomegalovirus IgG Antibody Positive (Negative); EBV, IgG Ab to Early Antigen Positive (Negative)
--- NOTE | 2019-09-20 14:03 | PN ---
Subjective Date of Service: 09/20/19 Interval History: Patient felt good, eager to go home. No fever overnight, no nausea/vomiting. Feels back to normal. Didn't sleep well due to noise. Objective Active Medications: Acetaminophen (Tylenol Adult Liq*) 650 mg PO Q4H PRN PRN Reason: MILD PAIN or TEMP > 100.4 Enoxaparin Sodium (Lovenox(*)) 30 mg SUBCUT Q24H [facility] Last Admin: 09/20/19 12:46 Dose: Not Given Cefepime HCl (Maxipime 2 Gm In Dextrose Duplex (*)) 2 gm in 50 mls @ 100 mls/ hr IV Q12H [facility] Last Admin: 09/20/19 08:34 Dose: 100 mls/hr Levothyroxine Sodium (Synthroid Tab*) 88 mcg PO 0600 [facility] Last Admin: 09/20/19 05:57 Dose: 88 mcg Vital Signs - 8 hr 09/20/19 09/20/19 07:21 10:58 Temperature 98.6 F 98.5 F Pulse Rate 60 64 Respiratory 16 16 Rate Blood Pressure 106/66 112/76 (mmHg) O2 Sat by Pulse 97 100 Oximetry Oxygen Devices in Use Now: None Exam: Appearance: comfortably sitting on bed Eyes: No Scleral Icterus Ears/Nose/Mouth/Throat: Clear Oropharnyx, Mucous Membranes Moist Neck: NL Appearance and Movements; NL JVP, Trachea Midline Respiratory: Symmetrical Chest Expansion and Respiratory Effort, Clear to Auscultation Cardiovascular: NL Sounds; No Murmurs; No JVD, RRR Abdominal: soft, non tender, liver palpable right after costal rib , no spleenomegaly Extremities: no edema Lymph Node: no cervical, inguinal lymphadenopathy Result Diagrams: 09/20/19 05:28 09/20/19 06:15 Assess/Plan/Problems-Billing Assessment: 64 y/o female with history of hypothyroidism, dysthymia, eczema, recent initiation of mirtazepine and topical tacrolimus, presented with fever for 1 week, found to have pancytopenia, transaminitis, high ferritin, likely medication induced at this moment, but still broad differential in the list. - Patient Problems (1) Pancytopenia Current Visit: Yes Status: Acute Code(s): D61.818 - OTHER PANCYTOPENIA SNOMED Code(s): 238276206 Comment: - Differential keeps broad at this moment, medication related, infection (bacterial, viral such as CMV, EBV, HIV), tick borne infection ( anaplasmosis, ehrlichiosis), malignancy such as leukemia and lymphoma, autoimmune disease all likely - there is a concern of HLH with high ferritin, elevated LDH, pancytopenia - off two insulting medication mirtazepine, topical tacrolimus - will screen for common viral infection, tick borne disease, lipid panel; consider test CD25 - will stop GCSf today, one dose of GCSF was given in total. (2) Neutropenic fever Current Visit: Yes Status: Acute Code(s): D70.9 - NEUTROPENIA, UNSPECIFIED; R50.81 - FEVER PRESENTING WITH CONDITIONS CLASSIFIED ELSEWHERE SNOMED Code(s) : 075392752 Comment: - no specific sources - a/w blood c/s, urine cs - continue iv cefepime - off neutropenic precaution - will watch CBC in the next 3 days (3) Hypothyroidism Current Visit: Yes Status: Acute Code(s): E03.9 - HYPOTHYROIDISM, UNSPECIFIED SNOMED Code(s): 19634884 Comment: - mildly elevated tsh - could be sick euthyroid (4) Dysthymia Current Visit: Yes Status: Acute Code(s): F34.1 - DYSTHYMIC DISORDER SNOMED Code(s): 17291913 Comment: - off mirtazepine as a potential cause for her primary problem (5) Eczema Current Visit: Yes Status: Acute Code(s): L30.9 - DERMATITIS, UNSPECIFIED SNOMED Code(s): 33635664 Comment: - off topical tacrolimus (6) DVT prophylaxis Current Visit: Yes Status: Acute Code(s): Z29.9 - ENCOUNTER FOR PROPHYLACTIC MEASURES, UNSPECIFIED SNOMED Code(s): 337821073 Comment: ambulatory Status and Disposition: Inpatient Medicine Attestation Documenting Resident: Teresa Chakraborty Supervising Physician: Izabel Cole Attending/Supervising Physician Comment: Counts responded appropriately to gcsf, which does not narrow our differential. Peripheral smear was reported to be benign appearing by Dr. Schreiber. Her daughter has gaucher's disease, which is likely unrelated but important to note. She has hepatomegaly on exam as well as rising transaminases with a positive HCV ab. Awaiting HCV RNA as well as other tests; will get a liver and spleen US today. Case discussed with Christopher, who agrees to evaluate Gretchen today. Attestation: This service has been performed in part by a resident under the direction of a teaching physician.I, zIabel Cole, performed the service, or was physically present during the critical, or palma portions of the service, furnished by the resident. I participated in the management of the patient.
--- NOTE | 2019-09-20 15:39 | PN ---
Progress Note - Progress Note Date of Service: 09/20/19 SOAP: Subjective: [Patient feels well and has been afebrile for ~48 hours now. She received GCSF yesterday with an excellent response. ] Objective: [ Acetaminophen (Tylenol Adult Liq*) 650 mg PO Q4H PRN PRN Reason: MILD PAIN or TEMP > 100.4 Enoxaparin Sodium (Lovenox(*)) 30 mg SUBCUT Q24H [facility] Last Admin: 09/20/19 12:46 Dose: Not Given Cefepime HCl (Maxipime 2 Gm In Dextrose Duplex (*)) 2 gm in 50 mls @ 100 mls/ hr IV Q12H [facility] Last Admin: 09/20/19 08:34 Dose: 100 mls/hr Levothyroxine Sodium (Synthroid Tab*) 88 mcg PO 0600 [facility] Last Admin: 09/20/19 05:57 Dose: 88 mcg Laboratory Results - last 24 hr 09/19/19 09/19/19 09/19/19 05:25 05:25 14:25 WBC RBC Hgb Hct MCV MCH MCHC RDW Plt Count MPV Neut % (Auto) Lymph % (Auto) Sheridan % (Auto) Eos % (Auto) Baso % (Auto) Absolute Neuts (auto) Absolute Lymphs (auto) Absolute Monos (auto) Absolute Eos (auto) Absolute Basos (auto) Absolute Nucleated RBC Immature Gran % Neutrophils % Band Neutrophils % Lymphocytes % Reactive Lymphs % Monocytes % Eosinophils % Basophils % Nucleated RBC % Normal RBC Morphology Hem Pathologist Commnt Sodium Potassium Chloride Carbon Dioxide Anion Gap BUN Creatinine Est GFR ( Amer) Est GFR (Non-Af Amer) BUN/Creatinine Ratio Glucose Uric Acid Calcium Total Bilirubin Direct Bilirubin Indirect Bilirubin AST ALT Alkaline Phosphatase Lactate Dehydrogenase Total Protein Albumin Globulin Albumin/Globulin Ratio Anti-Nuclear Antibody 0.3 CMV IgG Ab CMV IgM Ab EBV Early Antigen Hepatitis A IgM Ab Negative Hep Bs Antigen Nonreactive Hep B Core IgM Ab Nonreactive Hepatitis C Antibody Reactive A Hepatitis C Ab Index 2.47 HIV 1&2 Ab/P24 Ag 4thGn Nonreactive 09/19/19 09/19/19 09/19/19 14:25 14:25 14:33 WBC 4.6 RBC 3.30 L Hgb 11.0 L Hct 31 L MCV 93 MCH 33 H MCHC 36 RDW 14 Plt Count 76 L MPV 10.6 H Neut % (Auto) 44.7 Lymph % (Auto) 47.4 Sheridan % (Auto) 6.7 Eos % (Auto) 0.6 Baso % (Auto) 0.6 Absolute Neuts (auto) 2.1 Absolute Lymphs (auto) 2.2 Absolute Monos (auto) 0.3 Absolute Eos (auto) 0.0 Absolute Basos (auto) 0.0 Absolute Nucleated RBC 0.0 Immature Gran % 1.0 Neutrophils % 52.0 Band Neutrophils % 1.0 Lymphocytes % 30.0 Reactive Lymphs % 9.0 H Monocytes % 6.0 Eosinophils % 1.0 Basophils % 1.0 Nucleated RBC % 0.1 Normal RBC Morphology Normal Hem Pathologist Commnt Sodium Potassium Chloride Carbon Dioxide Anion Gap BUN Creatinine Est GFR ( Amer) Est GFR (Non-Af Amer) BUN/Creatinine Ratio Glucose Uric Acid 3.0 Calcium Total Bilirubin Direct Bilirubin Indirect Bilirubin AST ALT Alkaline Phosphatase Lactate Dehydrogenase 295 H Total Protein Albumin Globulin Albumin/Globulin Ratio Anti-Nuclear Antibody CMV IgG Ab Positive A CMV IgM Ab Negative EBV Early Antigen Positive Hepatitis A IgM Ab Hep Bs Antigen Hep B Core IgM Ab Hepatitis C Antibody Hepatitis C Ab Index HIV 1&2 Ab/P24 Ag 4thGn 09/20/19 09/20/19 05:28 06:15 WBC 21.1 H RBC 3.16 L Hgb 10.1 L Hct 30 L MCV 93 MCH 32 H MCHC 34 RDW 14 Plt Count 98 L MPV 10.1 Neut % (Auto) 75.2 Lymph % (Auto) 18.6 Sheridan % (Auto) 5.8 Eos % (Auto) 0.2 Baso % (Auto) 0.2 Absolute Neuts (auto) 15.8 H Absolute Lymphs (auto) 3.9 Absolute Monos (auto) 1.2 H Absolute Eos (auto) 0.0 Absolute Basos (auto) 0.0 Absolute Nucleated RBC 0.0 Immature Gran % Neutrophils % Band Neutrophils % Lymphocytes % Reactive Lymphs % Monocytes % Eosinophils % Basophils % Nucleated RBC % 0.0 Normal RBC Morphology Hem Pathologist Commnt Sodium 137 Potassium 3.8 Chloride 105 Carbon Dioxide 25 Anion Gap 7 BUN 7 Creatinine 0.90 Est GFR ( Amer) 76.3 Est GFR (Non-Af Amer) 63.0 BUN/Creatinine Ratio 7.8 L Glucose 96 Uric Acid Calcium 8.0 L Total Bilirubin 0.70 Direct Bilirubin 0.10 Indirect Bilirubin 0.6 AST 159 H ALT 110 H Alkaline Phosphatase 139 H Lactate Dehydrogenase Total Protein 5.7 L Albumin 3.2 Globulin 2.5 Albumin/Globulin Ratio 1.3 Anti-Nuclear Antibody CMV IgG Ab CMV IgM Ab EBV Early Antigen Hepatitis A IgM Ab Hep Bs Antigen Hep B Core IgM Ab Hepatitis C Antibody Hepatitis C Ab Index HIV 1&2 Ab/P24 Ag 4thGn Vital Signs: Temp Pulse Resp BP Pulse Ox 98.5 F 64 16 112/76 100 09/20/19 10:58 09/20/19 10:58 09/20/19 10:58 09/20/19 10:58 09/20/19 10:58 Exam: Gen: Well appearing 64 yo female who appears younger than stated age and is in NAD Psych: alert and appropriately oriented Assessment: [This is a previously healthy 64 yo female who was admitted with neutropenic fever and pancytopenia of unclear etiology. Peripheral smear appears benign. Patient received one dose of GCSF and responded well. EBV/CMV serologies were reported this afternoon which indicate prior CMV infection, but acute EBV infection. Her hepatitis C Ab was also positive with a viral load pending. Acute EBV infection would certainly provide an excellent explanation for her febrile illness and pancytopenia with a benign appearing peripheral smear. ] Plan: [1. Pancytopenia with neutropenic fever: likely secondary to acute EBV infection - neutropenia has now resolved with GCSF, no need for additional doses - platelets are improving - no indication for bone marrow biopsy at this time - recommend repeat CBC in ~ 1 week and could retrial initiation of her mirtazipine at that time if counts fully recovered 2. Hepatitis C - unclear at this time whether this represents current or past infection and unsure of the clinical significance of this] - this was not discussed with the patient today, will defer to primary medicine team for appropriate management Dispo: per hospitalist team, recommend follow up CBC in ~ 1 week, this can be completed at the time of outpatient follow up with Dr Schreiber
[2019-09-21] MEDS: Levothyroxine TAB* 88 MCG TAB PO SCH (06:36)
--- NOTE | 2019-09-21 07:27 | PN ---
Hospitalist Progress Note Date of Service: 09/21/19 S/IE: Gretchen Grier is a 64 year-old woman with a history of hypothyroidism, eczema, dysthymia and osteoporosis who presented with abnormal lab results concerning for neutropenia / pancytopenia related to a recent 2 week history of night sweats, headache, productive cough and intermittent fevers as high as 103 and was admitted to the hospitalist service on 09/18/19. This is hospital day 4. Slept reasonably well throughout the night. Appreciated not being woken up for nursing / vital sign checks as was agreed upon yesterday. Did complain about some sleep disturbance due to loud activity in the adjacent room. Tried RemFresh OTC sustained release melatonin sleep aid as recommended yesterday with some benefit. No pain or discomfort. Continues to deny CP, SOB, fever, chills, sweats, changes in weight, rash other than eczema, n/v, pain / burning on urination. She continues to feel generally well, is in no pain and remains somewhat skeptical as to why she needs to be in the hospital, although she seems more cooperative and amenable to the continued diagnostic process than yesterday. Discussed the fact that several of the more specialized lab tests that have been ordered are still pending and that continued hospitalization remains necessary until there is evidence of WBC count stability and a better understanding of the the etiology of the neutropenia. O: PE: 3 Temp Pulse Resp BP Pulse Ox 98.7 F 66 20 118/73 99 09/20/19 19:15 09/20/19 19:15 09/20/19 20:00 09/20/19 19:15 09/20/19 19:15 General: AAAOx4, appears stated age, in no acute distress, resting comfortably in bed, pleasantly cooperates with interview and examination. HEENT: Head atraumatic, normocephalic. Auditory acuity grossly normal. PERRLA. EOMI. Visual acuity grossly normal. Nares patent. Oral mucosa pink and moist. Neck supple. Trachea midline. No JVD. No lymphadenopathy. Chest: Breathing unlabored with normal symmetric chest wall motion. Lungs clear to auscultation b/l. Regular heart rhythm. Normal S1/S2. No rubs, click, gallops. Abdomen: Abdomen soft, non-tender and non-distended. Liver palpable 2 cm below the costal margin. Spleen not palpable. Extremities: UE and LE distal CMS intact with 5/5 muscle strength. Some eczema noted on the right hand. Pertinent Lab Results: 3 09/18/19 09/19/19 09/19/19 09:09 10:30 14:25 Anaplasma DNA (PCR) Positive A* B. divergens/MO-1 PCR Negative Babesia duncani DNA PCR Negative Babesia microti DNA PCR Negative Borrelia miyamotoi (PCR) Negative CMV IgG Ab CMV IgM Ab E.chaffeensis DNA (PCR) Negative E. ewingii/canis (PCR) Negative E. muris-like DNA (PCR) Negative EBV Early Antigen Hepatitis A IgM Ab Negative Hep Bs Antigen Nonreactive Hep B Core IgM Ab Nonreactive Hepatitis C Antibody Reactive A Hepatitis C Ab Index 2.47 HIV 1&2 Ab/P24 Ag 4thGn Nonreactive Influenza A (Rapid) Negative Influenza B (Rapid) Negative 3 09/19/19 14:33 Anaplasma DNA (PCR) B. divergens/MO-1 PCR Babesia duncani DNA PCR Babesia microti DNA PCR Borrelia miyamotoi (PCR) CMV IgG Ab Positive A CMV IgM Ab Negative E.chaffeensis DNA (PCR) E. ewingii/canis (PCR) E. muris-like DNA (PCR) EBV Early Antigen Positive Hepatitis A IgM Ab Hep Bs Antigen Hep B Core IgM Ab Hepatitis C Antibody Hepatitis C Ab Index HIV 1&2 Ab/P24 Ag 4thGn Influenza A (Rapid) Influenza B (Rapid) 3 09/21/19 09/21/19 09/21/19 08:52 08:52 08:52 WBC 15.5 H RBC 3.34 L Hgb 10.7 L Hct 31 L MCH 32 H Plt Count 222 MPV 9.3 Absolute Neuts (auto) 11.0 H Absolute Monos (auto) 1.1 H INR (Anticoag Therapy) 0.98 Sodium 137 Potassium 3.7 Chloride 104 BUN 6 Creatinine 0.92 BUN/Creatinine Ratio 6.5 L Glucose 109 H Calcium 8.6 AST 156 H ALT 131 H Alkaline Phosphatase 159 H Total Protein 6.4 3 09/20/19 09/20/19 05:28 06:15 WBC 21.1 H RBC 3.16 L Hgb 10.1 L Hct 30 L MCH 32 H Plt Count 98 L Absolute Neuts (auto) 15.8 H Absolute Monos (auto) 1.2 H Sodium 137 Potassium 3.8 Chloride 105 BUN 7 Creatinine 0.90 BUN/Creatinine Ratio 7.8 L Glucose 96 Calcium 8.0 L AST 159 H ALT 110 H Alkaline Phosphatase 139 H Total Protein 5.7 L Abdominal Ultrasound (09/21/19): Images available, interpretation pending Current Medications: Acetaminophen (Tylenol Adult Liq*) 650 mg PO Q4H PRN PRN Reason: MILD PAIN or TEMP > 100.4 Last Admin: 09/21/19 06:39 Dose: 650 mg Enoxaparin Sodium (Lovenox(*)) 30 mg SUBCUT Q24H [facility] Last Admin: 09/21/19 08:19 Dose: Not Given Cefepime HCl (Maxipime 2 Gm In Dextrose Duplex (*)) 2 gm in 50 mls @ 100 mls/ hr IV Q12H [facility] Last Admin: 09/21/19 07:34 Dose: 100 mls/hr Levothyroxine Sodium (Synthroid Tab*) 88 mcg PO 0600 [facility] Last Admin: 09/21/19 06:36 Dose: 88 mcg Recent Orders: None A/I: 64 year-old woman with a history of hypothyroidism, eczema, dysthymia and osteoporosis with abnormal lab results concerning for neutropenia pancytopenia related to a recent 2 week history of night sweats, headache, productive cough and intermittent fevers as high as 103 now with lab results concerning for various infectious etiologies. P: Pancytopenia: Now lower concern for possible HLH based upon improvement and stability. Continuing to pursue broad etiological differential including drug-induced, bacterial / viral infections, auto-immune conditions and malignancies. Ordered numerous tests as above to investigate various possible infectious and auto-immune causes. Many results still pending. Positive PCR for anaplasma DNA. This fits the s/s of the 2 week sequelae leading up to admission and may explain the neutropenia and thrombocytopenia. Will add doxycycline. Positive for CMV IgG Ab and EBV early antigen. Positive anti-body test for hepatitis C. Hep C RNA quantitative pending. Ordered ABD US. US acquired, interpretation pending. Consulting infectious disease for help interpreting the clinical significance of these results and guidance on additional testing to consider. Lower suspicion for malignancy based upon hematology review of blood smear. Higher suspicion for drug induced and auto-immune causes. Continuing to hold mirtazapine and tacrolimus as possible etiological agents. Had given one dose of filgrastim as above per hematology recommendations with excellent response. WBC count now falling but still elevated. Need to wait to see if count stabilizes or drops too low after effect of the filgrastim wears off. Continue to monitor labs and vitals and re-assess as new test results come in and / or condition changes. Neutropenic Fever: Has remained afebrile for over 24 hours Now lower suspicion for possible HLH Continuing IV cefepime as above for prophylaxis No longer on neutropenic precautions Continue to monitor labs for neutropenia Hypothyroidism: Chronic condition most recently being treated with levothyroxine Continuing levothyroxine as above Dysthymia: Chronic condition most recently being treated with mirtazapine Holding mirtazapine as above as it is a potential etiology of pancytopenia Eczema: Chronic condition most recently being treated with tacrolimus ointment Holding tacrolimus as above as it is a potential etiology of pancytopenia DVT Prophylaxis: Ordered Lovenox as above Sequential compression device
[2019-09-21] MEDS: Cefepime 2 GM in Dextrose(*) 2 GM/50 ML BAG IV SCH (07:34)
[2019-09-21] MEDS: Enoxaparin(*) 30 MG/0.3 ML SYR SUBCUT SCH (08:19)
[2019-09-21 09:08] LABS: ABS Basophils 0.1 10^3/ul (0-0.2); ABS Eosinophils 0.1 10^3/ul (0-0.6); ABS Lymphocytes 3.3 10^3/ul (1.0-4.8); ABS Monocytes 1.1 10^3/ul (0-0.8); Eosinophil % 0.7 %; Hematocrit 31 % (35-47); Hemoglobin 10.7 g/dL (12.0-16.0); Mean Corpuscular HGB Conc 34 g/dL (31-36); Mean Corpuscular Hemoglobin 32 pg (27-31); Mean Corpuscular Volume 94 fL (80-97); Mean Platelet Volume 9.3 fL (7.4-10.4); Platelet Count 222 10^3/uL (150-450); Red Blood Count 3.34 10^6 /uL (3.70-4.87); Red Cell Distribution Width 14 % (10-15); White Blood Count 15.5 10^3/uL (3.5-10.8)
[2019-09-21 09:13] LABS: INR 0.98 (0.82-1.09)
[2019-09-21 09:24] LABS: Albumin 3.6 g/dL (3.2-5.2); Albumin/Globulin Ratio 1.3 (1-3); BUN/Creatinine Ratio 6.5 (8-20); Calcium 8.6 mg/dL (8.6-10.3); EGFR African American 74.4 (>60); EGFR Non-African American 61.5 (>60); Globulin 2.8 g/dL (2-4); Potassium 3.7 mmol/L (3.5-5.0); Total Bilirubin 0.5 mg/dL (0.2-1.0); Total Protein 6.4 g/dL (6.4-8.9)
[2019-09-21 12:02] LABS: C Reactive Protein 20.13 mg/L (<8.01)
[2019-09-21 12:22] LABS: Ferritin 570.6 ng/mL (11-307)
[2019-09-21] MEDS ORDERED: Iohexol 350* (CONTRAST) 500 ML MDV IV ONE (13:00)
[2019-09-21 15:36] VITALS: BP 106/66
[2019-09-21 15:47] LABS: Anaplasma phagocytophilum Positive (Negative); B. miyamotoi PCR, B Negative (Negative); Babesia divergens/MO-1 Negative (Negative); Babesia ducani Negative (Negative); Ehrlichia chaffeensis Negative (Negative); Ehrlichia ewingii/canis Negative (Negative); Ehrlichia muris eauclairensis Negative (Negative)
[2019-09-22 15:19] LABS: Albumin/Globulin Ratio 0.99; Total Protein(PEP) 6.1 g/dL (6.3 - 7.9)
--- NOTE | 2019-09-23 08:49 | DS ---
CC: Dr. Schreiber; Dr. Mauro; Dr. Green.* DISCHARGE SUMMARY: DATE OF ADMISSION: 09/18/19 DATE OF DISCHARGE: 09/21/19 PRINCIPAL DISCHARGE DIAGNOSES: 1. Anaplasmosis. 2. Pancytopenia. 3. Febrile neutropenia. 4. Positive EBV early antigen with questionable significance. 5. Elevated liver enzymes. SECONDARY DISCHARGE DIAGNOSES: 1. Hepatitis C virus positive antibody. 2. Eczema. 3. Insomnia. 4. Dysthymia. 5. Hypothyroidism. MEDICATIONS AT DISCHARGE: 1. Levothyroxine 88 mcg daily. 2. Premarin daily. 3. Tacrolimus 0.1% ointment topically b.i.d. p.r.n. itching. 4. Risedronate 150 mg monthly. 5. Doxycycline 100 mg b.i.d. for 14 days. PHYSICAL EXAM: Vital Signs: Temperature 98 degrees, heart rate 63, respiratory rate 18, pulse ox 100% on room air, blood pressure 106/66. General : Alert, well- appearing woman in no distress, resting comfortably in bed. HEENT: No scleral icterus. Oral mucosa is moist. No pharyngeal exudates, ulcers, or erythema. Neck: No lymphadenopathy. Chest: Regular rate and rhythm with no murmurs. Her lungs are clear bilaterally. Abdomen is soft, nontender, nondistended. Her spleen is nonpalpable. Her liver is palpable at the costal margin. No CVA tenderness. Extremities: No edema, rashes, or ulcers. Skin: No lesions. DIAGNOSTIC STUDIES/LAB DATA: Pertinent diagnostic studies from this admission and abdomen ultrasound on 09/21/19 showed a nonspecific hyperechoic structure in the right lobe of the liver near the dome, should be further evaluated with a triphasic CT or abdominal MRI. A triphasic abdomen and pelvis CT showed 3.4 cm solitary lesion near the dome of the liver has imaging features compatible with a cavernous hemangioma and there is a fecalith at the neck of the normal- appearing appendix. Consults during this hospitalization: Dr. Jorge Schreiber from Hematology. HOSPITAL COURSE BY PROBLEM: 1. Anaplasmosis. Ms. Grier initially presented to the hospital with febrile neutropenia and part of the workup included a full tick borne panel. This did not return until the day of her discharge and was significant for a positive anaplasma DNA test. Based on this finding, she is being discharged with doxycycline for 2 weeks. Unfortunately, it was over the weekend and an infectious disease consult was not available; however, she will follow up with Infectious Diseases as an outpatient. We suspect that all of her symptoms and presentation can be attributed to anaplasmosis and this likely explains both her pancytopenia and febrile neutropenia and elevated liver enzymes. 2. Febrile neutropenia. This was her admitting diagnosis and she was started on cefepime. The differential was very broad at the time of diagnosis and included a thorough workup and evaluation by Hematology. Dr. Schreiber looked at the peripheral smear with the pathologist and reported leukopenia but a fairly normal differential with a significant number of neutrophils. There are small lymphocytes as well as population of activated lymphocytes, occasional monocytes , no evidence of dysplasia, no evidence of early progenitor, red blood cell morphology is normal. Platelets are numerous and small, no clumping. Initially , Dr. Schreiber suspected her neutropenia was caused by mirtazapine, which had been started about a month ago, so based on that he gave her a dose of G-CSF and she had good response. Based on the benign appearance of her peripheral smear, a bone marrow biopsy was deferred. On the day of discharge, her cell counts were all improving and while this is difficult to interpret since she got G-CSF, the fact that the other cell lines beside the white blood cells were also improving suggest adequate marrow response. She was sent home on doxycycline as above. 3. Pancytopenia. This can be explained by anaplasmosis as well. Her peripheral smear is as above and was benign appearing and as above, her platelets were back to normal on the day of discharge. 4. Elevated liver enzymes. This can also be explained by anaplasmosis. A liver ultrasound was unremarkable except for a lesion, which was further characterized by CT triple phase to rule out hepatocellular carcinoma and suggested a hemangioma. Of note, her HCV antibody was positive and a HCV RNA is pending at the time of discharge, it will be essential for this to be followed up as an outpatient and she is aware of this finding. 4. EBV early antigen positive with questionable significant, initially it was thought to be possible that her symptoms could be explained by infectious mononucleosis; however, 1 anaplasma came back. We suspect that this was more likely the explanation and the EBV antigen may have been reactivation or false positive. 5. Dysthymia and insomnia. She was recently started on mirtazapine and since there was some question about whether this could cause neutropenia, we discontinued it. At the time of discharge, we continued to hold it and she was in agreement with this plan. She hopes to talk to her new primary care provider about alternative options. 6. HCV antibody positive. As noted, this was a new finding for her. I did discuss these findings with her about the HCV. Viral load is pending at the time of discharge and this will need to be followed up. 7. Disposition. Ms. Grier is being discharged to home with her . She has followup with Dr. Mauro, Dr. Green and Dr. Schreiber. I have given her a script for CBC to be done this week before she has her followup appointment. She is aware of the test pending at the time of discharge and that close followup is essential. CONDITION AT THE TIME OF DISCHARGE: Good. [id number]/CPS #: [id number] MTDD
== END 2019-09-21 16:55 | disposition home or self-care (01) | DRG 868 ==
LOC: ED 15:52 → MED 21:31
PROVIDERS: ADMIT Internal Medicine; ATTEND Internal Medicine
DX: A77.49 Other ehrlichiosis (principal); E87.1 Hypo-osmolality and hyponatremia; D61.818 Other pancytopenia; D70.9 Neutropenia, unspecified; B27.90 Infectious mononucleosis, unspecified without complication; E03.9 Hypothyroidism, unspecified; F34.1 Dysthymic disorder; L30.9 Dermatitis, unspecified; M81.0 Age-related osteoporosis without current pathological fracture; R50.81 Fever presenting with conditions classified elsewhere; M85.80 Other specified disorders of bone density and structure, unspecified site; G47.00 Insomnia, unspecified; B19.20 Unspecified viral hepatitis C without hepatic coma; F32.9 Major depressive disorder, single episode, unspecified; Z80.7 Family history of other malignant neoplasms of lymphoid, hematopoietic and related tissues
CPT/HCPCS: 36415; 71045; 74178; 76700; 80048; 80053; 80061; 80074; 80076; 81003; 81015; 82607; 82728; 82746; 83540; 83550; 83605; 83615; 84155; 84165; 84443; 84484; 84550; 85025; 85045; 85060; 85610; 85652; 85730; 86038; 86140; 86431; 86618; 86644; 86645; 86663; 87040; 87086; 87389; 87522; 87798; 96365; 99223; 99232; 99282; A9270-GY; J0692; Q5101; Q9967